=== PATIENT | female | born 1985 | race Caucasian/White ===

== ENCOUNTER 2017-05-17 22:12 | Inpatient (IN) | payer OTHER ==
[~2017-05-17] VITALS: Ht 160 cm; Wt 46.0 kg
[~2017-05-17 22:12] MED LIST: Acetaminophen PO; FAMO-132 PO; FERR325T28 PO; FOLI1TAB16 PO; MYCO250C PO; OXYC-133 PO; PRED-170 PO; RIVA15TA PO; TACR1CAP PO
[2017-05-17] MEDS ORDERED: IV NORMAL SALINE 1000 ML BAG IV ONE (22:30)
[2017-05-17] MEDS ORDERED: ACETAMINOPHEN 325 MG TABLET PO ONE ×2 (22:30→23:15)
--- NOTE | 2017-05-17 22:44 | NUR ---
Code Sepsis called @ 0. senior warehouse clerk at bedside @ 2221.
[2017-05-17 23:10] LABS: BASOPHILS # (AUTO) 0.1 K/uL (0.0-8.0); BASOPHILS % (AUTO) 0.5 % (0.0-2.0); EOSINOPHILS # (AUTO) 0.1 K/uL (0.0-0.7); EOSINOPHILS % (AUTO) 0.9 % (0.0-7.0); LYMPHOCYTES # (AUTO) 1.8 K/uL (20.0-40.0); MEAN CORPUSCULAR HEMOGLOBIN 23.5 uug (24.7-32.8); MEAN CORPUSCULAR HGB CONC 28 g/dL (32.3-35.6); MONOCYTES % (AUTO) 6.9 % (0.0-11.0); NEUTROPHILS # (AUTO) 11.1 K/uL (1.8-8.9); NEUTROPHILS % (AUTO) 78.7 % (38.5-71.5); PLATELET COUNT (AUTO) 620 K/uL (179-408); WHITE BLOOD COUNT (AUTO) 14.2 K/uL (3.8-11.8)
[2017-05-17 23:11] LABS: BILIRUBIN,DIRECT 0.1 mg/dL (0.0-0.2); BILIRUBIN,TOTAL 0.1 mg/dL (0.2-1.0); CREATININE 1.9 mg/dL (0.6-1.3); POTASSIUM 4.5 mmol/L (3.5-5.1); TOTAL PROTEIN, SERUM 5.1 g/dL (6.4-8.2)
[2017-05-17 23:16] LABS: HEMOGLOBIN 4.6 g/dL (10.9-14.3); RED BLOOD CELL COUNT(AUTO) 1.95 MIL/uL (3.63-4.92)
[2017-05-17 23:17] LABS: HEMATOCRIT 16.2 % (31.2-41.9)
[2017-05-17] MEDS ORDERED: PIPERACILLIN SODIUM/TAZOBACTAM 3.375 G in IV DEXTROSE 5% 50 ML IV ONE (23:30)
[2017-05-17] MEDS ORDERED: VANCOMYCIN IV 1,000 MG in IV DEXTROSE 5% 250 ML IV ONE (23:30)
[2017-05-17] MEDS ORDERED: ACETAMINOPHEN ES 500 MG TABLET ONE (23:33)
[2017-05-17] MEDS ORDERED: PIPERACILLIN/TAZOBACTAM/D5W 50 ML IV ONE (23:48)
[2017-05-18] VITALS (16 sets, daily range): BP systolic 91–113; BP diastolic 49–74
[2017-05-18] MEDS ORDERED: ONDANSETRON IV *ER 4 MG/2 ML VIAL IV ONE
[2017-05-18] MEDS ORDERED: MORPHINE SULFATE 4 MG/1 ML DISP.SYRIN IV ONE
[2017-05-18 00:02] LABS: *BILIRUBIN,URIN NEGATIVE (NEGATIVE); *BLOOD, URINE 2+ (NEGATIVE); *COLOR,URINE YELLOW (YELLOW); *KETONES,URINE NEGATIVE (NEGATIVE); *PROTEIN,URINE NEGATIVE (NEGATIVE); *UROBILINOGEN,URINE 0.2 E.U./dl (NORMAL); LEUKOCYTE ESTERASE ,URINE 2+ (NEGATIVE); NITRITE, URINE NEGATIVE (NEGATIVE); PH,URINE 5.5 (5.0-8.0); UGLUCOSE NEGATIVE (NEGATIVE)
[2017-05-18 00:11] LABS: *CLARITY,URINE HAZY (CLEAR)
[2017-05-18 00:12] LABS: BACTERIA,URINE MODERATE /HPF (NONE SEEN); SQUAMOUS EPITHELIAL CELL,UR MODERATE /HPF (NONE SEEN); WBC,URINE 20-50 /HPF (0-3)
[2017-05-18] MEDS ORDERED: ONDANSETRON 4 MG/2 ML VIAL ONE (00:23)
[2017-05-18] MEDS ORDERED: MORPHINE SULFATE 2 MG/1 ML DISP.SYRIN ONE (00:24)
[2017-05-18] MEDS ORDERED: VANCOMYCIN IV 200 ML ONE (00:48)
--- NOTE | 2017-05-18 00:56 | NUR ---
Report given to Lakia SINGLETON
[2017-05-18] MEDS ORDERED: MEROPENEM 0.5 G in IV NORMAL SALINE 50 ML IV SCH (01:00)
[2017-05-18] MEDS ORDERED: HYDROMORPHONE 1 MG/1 ML DISP.SYRIN IV PRN ×2 (01:00→12:00)
[2017-05-18] MEDS ORDERED: ONDANSETRON 4 MG/2 ML VIAL IV PRN (01:00)
--- NOTE | 2017-05-18 01:11 | NUR ---
Pt. admitted to [facility] , under care of Dr. Solano. Belongs List completed
--- NOTE | 2017-05-18 01:15 | NUR ---
RECEIVED PATIENT VIA GURNEY FROM ER. PATIENT IS A/O X4. APPEARS VERY PALE AND WEAK. ASSISTED TO THE BATHROOM. TEMPERATURE TRENDING DOWN. BP WNL. PATIENT PLACED ON TELE ORDERED, ST 115. PATIENT C/O PAIN, GENERALIZED AT THIS TIME. H/L INTACT AND PATENT, NOTED TO LEFT FA #22 GAUGE. CALL LIGHT IN REACH. ALL NEEDS ATTENDED. WILL CONTINUE TO MONITOR.
[2017-05-18 01:26] LABS: IRON, SERUM 5 ug/dL (50-175)
[2017-05-18 01:33] LABS: BAND % (MANUAL) 3 % (0-10); EOSINOPHILS % (MANUAL) 2 % (0-8); LYMPHOCYTES % (MANUAL) 16 % (20-40); MONOCYTES % (MANUAL) 4 % (2-10); NEUTROPHILS % (MANUAL) 75 % (42-75)
[2017-05-18] MEDS ORDERED: MEROPENEM 500 MG VIAL IV ONE (02:02)
--- NOTE | 2017-05-18 02:30 | NUR ---
bp 105/62, patient c/o in severe pain,dilaudid 0.5 mg iv given. temp 99 trending down,started 1 unit of prbc recheck v/s q 15 min x3 and wnl, continue closely monitor.
[2017-05-18] MEDS ORDERED: HYDROMORPHONE 4 MG/1 ML DISP.SYRIN ONE (02:32)
[2017-05-18] MEDS: IV NS 1000 ML 1,000 ML IV PRN (02:35)
--- NOTE | 2017-05-18 05:00 | NUR ---
1 unit of PRBC transfused completed,vital signs been stable, no adverse reaction noted.patient slept in short intervals,continue closely monitor.sr rate 90's with pac's .
[2017-05-18 07:37] LABS: BASOPHILS # (AUTO) 0.1 K/uL (0.0-8.0); EOSINOPHILS # (AUTO) 0.2 K/uL (0.0-0.7); EOSINOPHILS % (AUTO) 1.8 % (0.0-7.0); LYMPHOCYTES # (AUTO) 2.5 K/uL (20.0-40.0); LYMPHOCYTES % (AUTO) 20.7 % (20.5-51.5); MEAN CORPUSCULAR HEMOGLOBIN 25.2 uug (24.7-32.8); MEAN CORPUSCULAR HGB CONC 29 g/dL (32.3-35.6); MEAN CORPUSCULAR VOLUME 86.4 fL (75.5-95.3); MONOCYTES # (AUTO) 1.2 K/uL (2.0-10.0); MONOCYTES % (AUTO) 9.8 % (0.0-11.0); NEUTROPHILS % (AUTO) 66.7 % (38.5-71.5); PLATELET COUNT (AUTO) 486 K/uL (179-408)
[2017-05-18 07:39] LABS: RED BLOOD CELL COUNT(AUTO) 2.06 MIL/uL (3.63-4.92)
[2017-05-18 07:43] LABS: HEMATOCRIT 17.8 % (31.2-41.9); HEMOGLOBIN 5.2 g/dL (10.9-14.3)
[2017-05-18 07:47] LABS: ALANINE AMINOTRANSFERASE < 6 U/L (14-59); ALKALINE PHOSPHATASE 58 U/L (50-136); ASPARTATE AMINOTRANSFERASE 8 U/L (15-37); BILIRUBIN,TOTAL 0.4 mg/dL (0.2-1.0); CARBON DIOXIDE 16 mmol/L (21-32); CHLORIDE 115 mmol/L (98-107); CREATININE 1.7 mg/dL (0.6-1.3); GLUCOSE 78 mg/dL (74-106); MAGNESIUM 1.7 mg/dL (1.8-2.4); POTASSIUM 4.4 mmol/L (3.5-5.1); TOTAL PROTEIN, SERUM 4.5 g/dL (6.4-8.2); UREA NITROGEN, BLOOD 26 mg/dL (7-18)
[2017-05-18] MEDS ORDERED: HYDROMORPHONE 4 MG/1 ML DISP.SYRIN IV PRN (08:00)
--- NOTE | 2017-05-18 08:00 | NUR ---
Awake, alert, oriented x 4 pale. IVF infusing. Requesting more time to rest at this time
[2017-05-18 08:08] LABS: BAND % (MANUAL) 1 % (0-10); EOSINOPHILS % (MANUAL) 3 % (0-8); LYMPHOCYTES % (MANUAL) 22 % (20-40); MONOCYTES % (MANUAL) 4 % (2-10); NEUTROPHILS % (MANUAL) 70 % (42-75)
[2017-05-18] MEDS ORDERED: FAMOTIDINE 20 MG TABLET PO SCH (09:00)
[2017-05-18] MEDS: predniSONE 5 MG TABLET PO SCH (09:30)
[2017-05-18] MEDS: FOLIC ACID 1 MG TABLET PO SCH ×2 (09:31→17:59)
[2017-05-18] MEDS: FAMOTIDINE 20 MG TABLET PO SCH (09:31)
[2017-05-18] MEDS: TACROLIMUS ANHYDROUS 1 MG CAPSULE PO SCH ×2 (09:31→20:52)
[2017-05-18] MEDS: MEROPENEM 0.5 G in IV NORMAL SALINE 50 ML IV SCH ×2 (09:32→20:58)
[2017-05-18] MEDS: MYCOPHENOLATE MOFETIL 250 MG CAPSULE PO SCH ×2 (09:34→20:52)
[2017-05-18] MEDS ORDERED: MEROPENEM 500 MG in IV NORMAL SALINE 50 ML IV SCH (10:00)
--- NOTE | 2017-05-18 10:30 | NUR ---
All critical lab report relayed to Dr. Mcnulty with orders.
[2017-05-18] MEDS ORDERED: DEXTROSE 5% IV ONE (11:00)
[2017-05-18] MEDS ORDERED: TOBRAMYCIN SULFATE IV ONE (11:00)
[2017-05-18] MEDS: ACETAMINOPHEN 325 MG TABLET PO PRN (11:22)
--- NOTE | 2017-05-18 12:30 | NUR ---
PRBC available. Temp 100.6. Tylenol po given with cooling measures. Will recheck temperature before starting PRBC
[2017-05-18] MEDS ORDERED: HYDROMORPHONE 1 MG/1 ML DISP.SYRIN IV ONE (12:45)
[2017-05-18] MEDS ORDERED: HYDROMORPHONE 4 MG/1 ML DISP.SYRIN IV ONE (13:00)
--- NOTE | 2017-05-18 14:46 | NUR ---
Temp 99. PRBC 1 unit started. Repeat temp 98. 5
[2017-05-18] MEDS ORDERED: MAGNESIUM SULFATE/D5W 100 ML IV SCH (15:00)
--- NOTE | 2017-05-18 16:16 | NUR ---
Clinical pharmacy note-Tobramycin per pharmacy Subjective: To start Tobramycin dosing on this patient for blood stream infection(MD note-sepsis possibly due to uti) Objective: BUN 26 Scr 1.7 WBC 12.0 Temp 100.6 Assessment/Plan: Since renal function is decreased, will dose by fall-off random level for now. Tobramycin 100mg IV x1 was given today at 1100 and random is on order for tomorrow at 0600 with am labs. Will follow the level for further dosing.
--- NOTE | 2017-05-18 16:30 | NUR ---
Received repeat lactic acid = 2.7, Dr. Mcnulty informed with orders for NS 1L bolus, will give after transfusion
[2017-05-18] MEDS: HYDROMORPHONE 4 MG/1 ML DISP.SYRIN IV PRN ×2 (16:53→20:50)
[2017-05-18] MEDS ORDERED: IV NS 1000 ML 1,000 ML IV ONE (17:45)
--- NOTE | 2017-05-18 17:45 | NUR ---
PRBC 1 unit finished with transfusion. Went to the bathroom and IV site got clotted, saline removed.
--- NOTE | 2017-05-18 18:39 | NUR ---
Restarted IV line to RFA G 20 after another attempt. NS bolus 1L started. Will endorsed to infused Magnesium and Merrem due
[2017-05-18] MEDS ORDERED: ALBUMIN HUMAN 25% 50 ML IV ONE (20:00)
[2017-05-18] MEDS: LACTOBACILLUS RHAMNOSUS GG 1 EACH CAPSULE PO SCH (20:52)
--- NOTE | 2017-05-18 21:00 | NUR ---
PATIENT AWAKE, ALERT,IN NO ACUTE DISTRESS, SINUS TACHY ON MONITOR,BP 102/65, AFEBRILE, SEEN BY ID. BUENROSTRO.MRSA SENT TO LAB ORDER,IV NS BOLUS DONE, PATIENT C/O SEVERE PAIN AFTER POST VOIDING DILAUDID 1 MG IV ADMIN CLOSELY MONITOR BP.
[2017-05-18 21:37] LABS: BASOPHILS # (AUTO) 0.1 K/uL (0.0-8.0); BASOPHILS % (AUTO) 0.5 % (0.0-2.0); EOSINOPHILS # (AUTO) 0.1 K/uL (0.0-0.7); EOSINOPHILS % (AUTO) 0.8 % (0.0-7.0); LYMPHOCYTES # (AUTO) 1.3 K/uL (20.0-40.0); LYMPHOCYTES % (AUTO) 11.9 % (20.5-51.5); MEAN CORPUSCULAR HEMOGLOBIN 26.5 uug (24.7-32.8); MEAN CORPUSCULAR HGB CONC 31 g/dL (32.3-35.6); MEAN CORPUSCULAR VOLUME 85.5 fL (75.5-95.3); MONOCYTES # (AUTO) 0.7 K/uL (2.0-10.0); MONOCYTES % (AUTO) 6.6 % (0.0-11.0); NEUTROPHILS # (AUTO) 8.8 K/uL (1.8-8.9); NEUTROPHILS % (AUTO) 80.2 % (38.5-71.5); PLATELET COUNT (AUTO) 490 K/uL (179-408)
[2017-05-18 21:47] LABS: RED BLOOD CELL COUNT(AUTO) 2.44 MIL/uL (3.63-4.92)
[2017-05-18 21:49] LABS: HEMATOCRIT 20.9 % (31.2-41.9); HEMOGLOBIN 6.5 g/dL (10.9-14.3)
[2017-05-18 22:08] LABS: BAND % (MANUAL) 2 % (0-10); EOSINOPHILS % (MANUAL) 1 % (0-8); LYMPHOCYTES % (MANUAL) 18 % (20-40); MONOCYTES % (MANUAL) 6 % (2-10); NEUTROPHILS % (MANUAL) 73 % (42-75)
--- NOTE | 2017-05-18 22:30 | NUR ---
HGB 6.5/HCT 21.6 AND LACTIC ACID 2.1,DR. DILL INFORMED,INCREASE IV RATE TO 100ML/HR OVER NIGHT,AND IF HGB IS LESS THAN 7 IN AM,TO TRANSFUSE 1 MORE UNIT OF PRBC.PATIENT AGREE WITH PLAN OF CARE.
[2017-05-19] VITALS (10 sets, daily range): BP systolic 107–118; BP diastolic 65–83
[2017-05-19] MEDS ORDERED: MAGNESIUM SULFATE/D5W 100 ML ONE (00:05)
[2017-05-19] MEDS ORDERED: HYDROCODONE/APAP 5-325MG TABLET PO PRN (00:15)
[2017-05-19] MEDS: MEROPENEM 0.5 G in IV NORMAL SALINE 50 ML IV SCH ×3 (02:39→17:43)
[2017-05-19] MEDS: HYDROMORPHONE 4 MG/1 ML DISP.SYRIN IV PRN ×5 (03:09→18:57)
[2017-05-19] MEDS ORDERED: HYDROMORPHONE 1 MG/1 ML DISP.SYRIN IV ONE (04:45)
--- NOTE | 2017-05-19 04:48 | NUR ---
PATIENT AMBULATED TO BATH ROOM,VOIDED,CRYING C/O SEVERE ,BURNING PAIN 03/20 , WAS NOTIFIED,DILAUDID 1 MG IV GIVEN X 1 TIMES.
[2017-05-19] MEDS ORDERED: HYDROMORPHONE 4 MG/1 ML DISP.SYRIN ONE (04:53)
--- NOTE | 2017-05-19 06:31 | NUR ---
PATIENT ASLEEP , REQUESTED LAB TO COME BACK LATER, C/O FEELS TIRED WANTS TO SLEEP A LITTLE BIT MORE.
--- NOTE | 2017-05-19 09:00 | NUR ---
PT REFUSING FOR NUCLEAR SCIENTIST TO TAKE BLOOD FOR LAB, PER PT "MAYBE LATER, NOT RIGHT NOW". WILL TRY AGAIN LATER
[2017-05-19] MEDS: predniSONE 5 MG TABLET PO SCH (09:06)
[2017-05-19] MEDS: LACTOBACILLUS RHAMNOSUS GG 1 EACH CAPSULE PO SCH ×2 (09:21→20:54)
[2017-05-19] MEDS: FAMOTIDINE 20 MG TABLET PO SCH (09:22)
[2017-05-19] MEDS: FOLIC ACID 1 MG TABLET PO SCH ×2 (09:22→17:43)
[2017-05-19] MEDS: TACROLIMUS ANHYDROUS 1 MG CAPSULE PO SCH ×2 (09:22→21:00)
[2017-05-19] MEDS: FERROUS SULFATE 325 MG TABEC PO SCH (09:22)
[2017-05-19] MEDS: MYCOPHENOLATE MOFETIL 250 MG CAPSULE PO SCH ×2 (09:22→20:55)
--- NOTE | 2017-05-19 12:00 | NUR ---
PT STILL REFUSING THE CONSTRUCTION SPECIALIST TO TAKE LAB, PER PT "LATER". ADVISED THER CONSTRUCTION SPECIALIST
--- NOTE | 2017-05-19 16:00 | NUR ---
DR IDLL IA AWARE ABOUT HGB RESULTS FOR 05/19/2017.
[2017-05-19 16:08] LABS: BASOPHILS % (AUTO) 0.3 % (0.0-2.0); EOSINOPHILS # (AUTO) 0.1 K/uL (0.0-0.7); EOSINOPHILS % (AUTO) 0.5 % (0.0-7.0); LYMPHOCYTES # (AUTO) 0.8 K/UL (0.8-4.8); LYMPHOCYTES % (AUTO) 5.6 % (20.5-51.5); MEAN CORPUSCULAR HEMOGLOBIN 25.2 UUG (27.0-31.0); MEAN CORPUSCULAR HGB CONC 30 g/dL (32.0-37.0); MEAN CORPUSCULAR VOLUME 83.6 FL (81.0-99.0); MONOCYTES # (AUTO) 0.3 K/UL (0.1-1.30); MONOCYTES % (AUTO) 2.3 % (0.0-11.0); NEUTROPHILS # (AUTO) 13.1 K/UL (1.8-8.9); NEUTROPHILS % (AUTO) 91.3 % (38.5-71.5); PLATELET COUNT (AUTO) 749 K/UL (150-450); WHITE BLOOD COUNT (AUTO) 14.3 K/UL (4.0-11.2)
[2017-05-19 16:14] LABS: HEMATOCRIT 22.6 % (37-47); HEMOGLOBIN 6.8 G/DL (12.0-16.0)
[2017-05-19] MEDS ORDERED: HYDROMORPHONE HCL 2 MG TABLET PO PRN ×2 (16:30)
[2017-05-19 16:44] LABS: MONOCYTES % (MANUAL) 2 % (2-10); NEUTROPHILS % (MANUAL) 88 % (42-75)
[2017-05-19 16:45] LABS: BAND % (MANUAL) 1 % (0-10); LYMPHOCYTES % (MANUAL) 9 % (20-40)
[2017-05-19 16:47] LABS: CREATININE 1.4 mg/dL (0.6-1.3); MAGNESIUM 1.7 mg/dL (1.8-2.4)
--- NOTE | 2017-05-19 17:45 | NUR ---
PER DR DILL INFUSE 1 PRBC, OK PER PT.
--- NOTE | 2017-05-19 17:46 | NUR ---
PT IS REFUSING TO TAKE EPOGEN AT THIS TIME NOR AT 1900. PT WANTS TO RECEIVE THE MEDICATION "AROUND 2300 OR SO". EDUCATION PROVIDED, LET THE PHARMACIST KNOW THAT THE PT WANTS TO POSTPONE ON THE MEDICATION. WILL ADVISE THE NOC SHIFT.
[2017-05-19] MEDS ORDERED: MAGNESIUM OXIDE 400 MG TABLET PO ONE (18:00)
--- NOTE | 2017-05-19 18:28 | NUR ---
THROUGHOUT THE SHIFT KEPT ON REMINDING THE PT TO URINATE FOR URINE SAMPLE, PER PT "I HAVE FORGOTTEN". pUT A HAT ON TOILET, THE PT REMOVED. PUT THE HAT ON TOILET AGAIN AND REMINDED THE PT TO LET THE NURSE KNOWONCE THE PT FEELS LIKE URINATING OR HAVING BM. "OK" PER THE PT.
--- NOTE | 2017-05-19 19:00 | NUR ---
PT IS LAYING IN BED COMFORTABLY. NO S/S OF RESPIRATORY DISTRESS NOTED. PAIN IS MEDICATED. PT STILL REFUSES EPOGEN. ALL SAFETY NEEDS ARE MET. NO S/S OF BLEEDING NOTED. PT WAS REMINDED TO LEAVE URINE AND STOOL SAMPLE
--- NOTE | 2017-05-19 22:00 | NUR ---
STARTED 1 UNIT OF PRBC,PATIENT TOLERATED WELL,MONITOR VITAL SIGNS CLOSELY , NO S/S OF ADVERSE REACTION NOTED,CONTINUE PAIN MANAGEMENT WITH DILAUDID IV ORDER.
[2017-05-19] MEDS: ACETAMINOPHEN 325 MG TABLET PO PRN (22:23)
[2017-05-20] VITALS: BP 118/82
[2017-05-20] MEDS: HYDROMORPHONE 4 MG/1 ML DISP.SYRIN IV PRN (00:24)
[2017-05-20 01:00] VITALS: BP 118/82
--- NOTE | 2017-05-20 01:00 | NUR ---
1UNIT OF PRBC TRANSFUSED COMPLETED, NO REACTION,PATIENT WANTS PROCRIT TO BE GIVEN IN THE MORNING,ALL NEEDS ATTENDED.
[2017-05-20] MEDS: MEROPENEM 0.5 G in IV NORMAL SALINE 50 ML IV SCH ×3 (01:45→17:24)
[2017-05-20] MEDS: IV NS 1000 ML 1,000 ML IV PRN ×2 (01:45→13:42)
[2017-05-20 04:00] VITALS: BP 114/80
[2017-05-20] MEDS: EPOETIN ALFA 20,000 UNIT/ML ML SQ SCH (06:53)
--- NOTE | 2017-05-20 08:00 | NUR ---
ALERT AND COOPERATIVE NO SIGNS OF SOB OR DISTRESS SR/ST ON MONITOR
[2017-05-20] MEDS: predniSONE 5 MG TABLET PO SCH (09:26)
[2017-05-20] MEDS: LACTOBACILLUS RHAMNOSUS GG 1 EACH CAPSULE PO SCH ×2 (09:26→21:09)
[2017-05-20] MEDS: MYCOPHENOLATE MOFETIL 250 MG CAPSULE PO SCH ×2 (09:26→21:09)
[2017-05-20] MEDS: FERROUS SULFATE 325 MG TABEC PO SCH (09:27)
[2017-05-20] MEDS: FAMOTIDINE 20 MG TABLET PO SCH ×2 (09:27→16:32)
[2017-05-20] MEDS: FOLIC ACID 1 MG TABLET PO SCH ×2 (09:27→16:32)
[2017-05-20] MEDS: TACROLIMUS ANHYDROUS 1 MG CAPSULE PO SCH ×2 (09:58→21:00)
[2017-05-20 10:22] LABS: BASOPHILS # (AUTO) 0.1 K/uL (0.0-8.0); BASOPHILS % (AUTO) 0.7 % (0.0-2.0); EOSINOPHILS # (AUTO) 0.2 K/uL (0.0-0.7); EOSINOPHILS % (AUTO) 1.7 % (0.0-7.0); LYMPHOCYTES # (AUTO) 2.3 K/uL (20.0-40.0); LYMPHOCYTES % (AUTO) 16.5 % (20.5-51.5); MEAN CORPUSCULAR HEMOGLOBIN 26.4 uug (24.7-32.8); MEAN CORPUSCULAR HGB CONC 31 g/dL (32.3-35.6); MEAN CORPUSCULAR VOLUME 85.5 fL (75.5-95.3); MONOCYTES # (AUTO) 0.9 K/uL (2.0-10.0); MONOCYTES % (AUTO) 6.3 % (0.0-11.0); NEUTROPHILS # (AUTO) 10.3 K/uL (1.8-8.9); NEUTROPHILS % (AUTO) 74.8 % (38.5-71.5); PLATELET COUNT (AUTO) 552 K/uL (179-408); RED BLOOD CELL COUNT(AUTO) 2.94 MIL/uL (3.63-4.92); WHITE BLOOD COUNT (AUTO) 13.8 K/uL (3.8-11.8)
[2017-05-20 10:27] LABS: HEMATOCRIT 25.1 % (31.2-41.9); HEMOGLOBIN 7.8 g/dL (10.9-14.3)
[2017-05-20 10:37] LABS: BILIRUBIN,DIRECT 0.1 mg/dL (0.0-0.2); BILIRUBIN,TOTAL 0.2 mg/dL (0.2-1.0); CREATININE 1.2 mg/dL (0.6-1.3); MAGNESIUM 1.7 mg/dL (1.8-2.4); POTASSIUM 4.5 mmol/L (3.5-5.1); TOTAL PROTEIN, SERUM 4.8 g/dL (6.4-8.2)
[2017-05-20] MEDS ORDERED: HYDROMORPHONE 4 MG/1 ML DISP.SYRIN IV ONE (11:15)
[2017-05-20 11:30] VITALS: BP 115/78
--- NOTE | 2017-05-20 13:00 | NUR ---
SEEN BY DR DILL NOTED LABS WITH ORDER FOR MG 2 GM IV
[2017-05-20 13:20] VITALS: BP 115/82
[2017-05-20] MEDS: MAGNESIUM SULFATE/D5W 100 ML IV SCH ×2 (13:34→14:41)
--- NOTE | 2017-05-20 15:46 | NUR ---
CONTINUE WITH PAIN MANAGEMENT
[2017-05-20] MEDS: MORPHINE SULFATE 4 MG/1 ML DISP.SYRIN IV PRN ×2 (17:23→21:39)
[2017-05-20 19:00] VITALS: BP 118/84
[2017-05-21] VITALS: BP 122/83
--- NOTE | 2017-05-21 00:05 | NUR ---
temp 99.6,Tylenol 650 mg po given,patient still having a lot of pain and frequently urination,continue pain management with morphine 6 mg iv q 4h as needed.
[2017-05-21] MEDS: ACETAMINOPHEN 325 MG TABLET PO PRN (00:12)
[2017-05-21] MEDS: MORPHINE SULFATE 4 MG/1 ML DISP.SYRIN IV PRN ×5 (01:56→21:33)
[2017-05-21] MEDS: MEROPENEM 0.5 G in IV NORMAL SALINE 50 ML IV SCH ×3 (01:58→18:03)
[2017-05-21 04:00] VITALS: BP 117/85
[2017-05-21] MEDS ORDERED: MORPHINE SULFATE 10 MG/1 ML DISP.SYRIN IV ONE (05:00)
--- NOTE | 2017-05-21 05:30 | NUR ---
patient stated still having a lot of pain, was notified Morphine 8 mg iv given x1 times.urine culture sent to lab,patient has a poor night.
[2017-05-21] MEDS ORDERED: MORPHINE SULFATE 10 MG/1 ML DISP.SYRIN ONE (05:32)
[2017-05-21 07:10] LABS: *BILIRUBIN,URIN NEGATIVE (NEGATIVE); *BLOOD, URINE 2+ (NEGATIVE); *CLARITY,URINE CLEAR (CLEAR); *COLOR,URINE YELLOW (YELLOW); *KETONES,URINE NEGATIVE (NEGATIVE); *PROTEIN,URINE NEGATIVE (NEGATIVE); *UROBILINOGEN,URINE 0.2 E.U./dl (NORMAL); LEUKOCYTE ESTERASE ,URINE 1+ (NEGATIVE); NITRITE, URINE NEGATIVE (NEGATIVE); UGLUCOSE NEGATIVE (NEGATIVE)
[2017-05-21] MEDS: IV NS 1000 ML 1,000 ML IV PRN ×2 (07:17→21:11)
[2017-05-21 07:29] LABS: BACTERIA,URINE FEW /HPF (NONE SEEN); SQUAMOUS EPITHELIAL CELL,UR MODERATE /HPF (NONE SEEN)
[2017-05-21 09:24] LABS: CREATININE 1.2 mg/dL (0.6-1.3); MAGNESIUM 1.9 mg/dL (1.8-2.4); POTASSIUM 4.6 mmol/L (3.5-5.1)
[2017-05-21] MEDS: FAMOTIDINE 20 MG TABLET PO SCH ×2 (09:38→17:51)
[2017-05-21] MEDS: LACTOBACILLUS RHAMNOSUS GG 1 EACH CAPSULE PO SCH ×2 (09:38→20:02)
[2017-05-21] MEDS: FERROUS SULFATE 325 MG TABEC PO SCH (09:38)
[2017-05-21] MEDS: FOLIC ACID 1 MG TABLET PO SCH ×2 (09:38→17:51)
[2017-05-21] MEDS: MYCOPHENOLATE MOFETIL 250 MG CAPSULE PO SCH ×2 (09:38→20:12)
[2017-05-21] MEDS: predniSONE 5 MG TABLET PO SCH (09:38)
[2017-05-21 10:50] LABS: BASOPHILS # (AUTO) 0.1 K/uL (0.0-8.0); BASOPHILS % (AUTO) 0.9 % (0.0-2.0); EOSINOPHILS # (AUTO) 0.3 K/uL (0.0-0.7); EOSINOPHILS % (AUTO) 1.8 % (0.0-7.0); HEMATOCRIT 24.4 % (31.2-41.9); HEMOGLOBIN 7.7 g/dL (10.9-14.3); LYMPHOCYTES # (AUTO) 2.1 K/uL (20.0-40.0); LYMPHOCYTES % (AUTO) 13.2 % (20.5-51.5); MEAN CORPUSCULAR HGB CONC 32 g/dL (32.3-35.6); MEAN CORPUSCULAR VOLUME 85.5 fL (75.5-95.3); MONOCYTES # (AUTO) 0.9 K/uL (2.0-10.0); MONOCYTES % (AUTO) 5.9 % (0.0-11.0); NEUTROPHILS # (AUTO) 12.4 K/uL (1.8-8.9); NEUTROPHILS % (AUTO) 78.2 % (38.5-71.5); PLATELET COUNT (AUTO) 547 K/uL (179-408); RED BLOOD CELL COUNT(AUTO) 2.86 MIL/uL (3.63-4.92); WHITE BLOOD COUNT (AUTO) 15.8 K/uL (3.8-11.8)
[2017-05-21 11:42] VITALS: BP 117/78
[2017-05-21 15:34] VITALS: BP 120/78
[2017-05-21 20:09] VITALS: BP 128/86
[2017-05-21] MEDS: TACROLIMUS ANHYDROUS 0.5 MG CAPSULE PO SCH (21:30)
--- NOTE | 2017-05-21 22:22 | NUR ---
Received patient sound asleep at this time. No s/s of respiratory distress noted. Will monitor.
--- NOTE | 2017-05-21 22:40 | NUR ---
Received patient in bed awake alert & oriented, no SOB denies chest pain. Still c/o gen. pain, medicated for pain PRN. Routine night meds administered p.o, patient tolerated. Night snacks provided. kept comfortable. Will continue to monitor.
[2017-05-22] MEDS: MORPHINE SULFATE 4 MG/1 ML DISP.SYRIN IV PRN ×6 (01:40→22:31)
[2017-05-22] MEDS: MEROPENEM 0.5 G in IV NORMAL SALINE 50 ML IV SCH ×3 (01:41→18:27)
--- NOTE | 2017-05-22 01:49 | NUR ---
Medicated for pain as needed. Will monitor.
--- NOTE | 2017-05-22 05:09 | NUR ---
Slept good. Medicated for pain twice with relief. Continue on ATB without s/s of adverse reaction noted. All needs attended and met. No significant event reported all night. Continue current plan of care.
[2017-05-22 05:28] VITALS: BP 113/80
[2017-05-22] MEDS: ACETAMINOPHEN 325 MG TABLET PO PRN ×2 (05:55→21:31)
[2017-05-22] MEDS ORDERED: MORPHINE SULFATE 10 MG/1 ML DISP.SYRIN ONE (06:03)
--- NOTE | 2017-05-22 08:00 | NUR ---
Sleeping, comfortable. IVF infusing
[2017-05-22] MEDS: IV NS 1000 ML 1,000 ML IV PRN ×2 (08:56→23:04)
[2017-05-22] MEDS: TOBRAMYCIN SULFATE IV SCH ×2 (08:57→22:24)
[2017-05-22] MEDS: DEXTROSE 5% IV SCH ×2 (08:57→22:24)
[2017-05-22] MEDS: FERROUS SULFATE 325 MG TABEC PO SCH (09:04)
[2017-05-22] MEDS: FOLIC ACID 1 MG TABLET PO SCH ×2 (09:04→18:27)
[2017-05-22] MEDS: predniSONE 5 MG TABLET PO SCH (09:04)
[2017-05-22] MEDS: LACTOBACILLUS RHAMNOSUS GG 1 EACH CAPSULE PO SCH ×2 (09:04→21:22)
[2017-05-22] MEDS: FAMOTIDINE 20 MG TABLET PO SCH ×2 (09:04→18:27)
--- NOTE | 2017-05-22 10:00 | NUR ---
Awake, medication given
[2017-05-22] MEDS: MYCOPHENOLATE MOFETIL 250 MG CAPSULE PO SCH ×2 (10:04→21:22)
[2017-05-22] MEDS: TACROLIMUS ANHYDROUS 0.5 MG CAPSULE PO SCH (10:04)
[2017-05-22 11:44] VITALS: BP 111/78
--- NOTE | 2017-05-22 12:48 | NUR ---
Clinical pharmacy note-Tobramycin per pharmacy Subjective: To start Tobramycin dosing on this patient for sepsis possibly due to uti Objective: HT 63'' WT 101 LB BUN 17 Scr 1.2 WBC 15.8 Temp 100 Assessment/Plan: Will start tobramycin 60 mg IVPB q13h for predicted peal of 5.9 & tr of 0.81 at steady state. 1st dose is due today at 0900. Plan to check peak & trough around 3rd dose (not yet ordered). Will follow the level for further dosing.
[2017-05-22 16:10] VITALS: BP 115/73
--- NOTE | 2017-05-22 18:30 | NUR ---
Complaining of pain PRN medication given. IVF infusing
--- NOTE | 2017-05-22 20:15 | NUR ---
RECEIVED SHIFT REPORT FROM PREVIOUS SHIFT NURSE. PATIENT IS A/OX4, RESTING COMFORTABLY IN BED WITH FRIEND AT BEDSIDE. PAIN MANAGEMENT WILL BE PROVIDED. BED IN LOCKED/LOW POSITION, SIDE RAILS UP X2, CALL LIGHT WITHIN REACH. SAFETY AND COMFORT WILL BE PROVIDED THROUGHOUT SHIFT.
--- NOTE | 2017-05-22 20:15 | NUR ---
IN STABLE CONDITION, NO S/S OF DISTRESS, VSS.
[2017-05-22 20:26] VITALS: BP 129/87
[2017-05-22] MEDS: TACROLIMUS ANHYDROUS 1 MG CAPSULE PO SCH (21:21)
--- NOTE | 2017-05-22 21:30 | NUR ---
PATIENT'S TEMPERATURE 100. COOLING MEASURES PROVIDED, TYLENOL WILL BE ADMINISTERED.
[2017-05-22 22:30] VITALS: BP 129/88
--- NOTE | 2017-05-22 22:30 | NUR ---
PATIENT'S BP 129/88. TEMPERATURE 99.7.
[2017-05-23] MEDS: MEROPENEM 0.5 G in IV NORMAL SALINE 50 ML IV SCH ×2 (02:11→10:25)
[2017-05-23 02:50] VITALS: BP 128/88
[2017-05-23] MEDS: MORPHINE SULFATE 4 MG/1 ML DISP.SYRIN IV PRN ×5 (02:54→21:25)
[2017-05-23 05:05] VITALS: BP 120/83
--- NOTE | 2017-05-23 06:17 | NUR ---
PATIENT SLEPT INTERMITTENTLY THROUGH THE NIGHT. PATIENT HAD COMPLAINTS OF PAIN, PAIN MANAGEMENT PROVIDED. BP WNL IN THE 120S/80S. TEMPERATURE ELEVATED IN BEGINNING OF SHIFT BUT NOW IS WNL WITH TYLENOL ADMINSITERED AND COOLING MEASURES INITIATED. IN STABLE CONDITION, NO S/S OF DISTRESS. ANTIBIOTICS ADMINISTERED. BED IN LOCKED/LOW POSITION WITH SIDE RAILS UPX2, CALL LIGHT WITHIN REACH. SAFETY AND COMFORT WAS PROVIDED THROUGHOUT SHIFT.
[2017-05-23] MEDS: FERROUS SULFATE 325 MG TABEC PO SCH (08:30)
[2017-05-23] MEDS: FAMOTIDINE 20 MG TABLET PO SCH ×2 (08:30→16:19)
[2017-05-23] MEDS: predniSONE 5 MG TABLET PO SCH (08:30)
[2017-05-23] MEDS: LACTOBACILLUS RHAMNOSUS GG 1 EACH CAPSULE PO SCH ×2 (08:30→21:24)
[2017-05-23] MEDS: TACROLIMUS ANHYDROUS 1 MG CAPSULE PO SCH ×2 (08:31→21:25)
[2017-05-23] MEDS: FOLIC ACID 1 MG TABLET PO SCH ×2 (08:31→16:18)
[2017-05-23] MEDS: MYCOPHENOLATE MOFETIL 250 MG CAPSULE PO SCH ×2 (08:37→21:24)
[2017-05-23 09:31] LABS: BASOPHILS # (AUTO) 0.2 K/uL (0.0-8.0); EOSINOPHILS # (AUTO) 0.4 K/uL (0.0-0.7); EOSINOPHILS % (AUTO) 2.5 % (0.0-7.0); HEMATOCRIT 23.8 % (31.2-41.9); LYMPHOCYTES # (AUTO) 2.4 K/uL (20.0-40.0); LYMPHOCYTES % (AUTO) 14.8 % (20.5-51.5); MEAN CORPUSCULAR HEMOGLOBIN 26.5 uug (24.7-32.8); MEAN CORPUSCULAR HGB CONC 31 g/dL (32.3-35.6); MEAN CORPUSCULAR VOLUME 86.8 fL (75.5-95.3); MONOCYTES % (AUTO) 6.3 % (0.0-11.0); NEUTROPHILS % (AUTO) 75.4 % (38.5-71.5); PLATELET COUNT (AUTO) 515 K/uL (179-408); RED BLOOD CELL COUNT(AUTO) 2.74 MIL/uL (3.63-4.92); WHITE BLOOD COUNT (AUTO) 15.9 K/uL (3.8-11.8)
[2017-05-23] MEDS: IV NS 1000 ML 1,000 ML IV PRN (09:35)
[2017-05-23 09:37] LABS: HEMOGLOBIN 7.3 g/dL (10.9-14.3)
[2017-05-23 09:53] LABS: MAGNESIUM 1.4 mg/dL (1.8-2.4); PHOSPHOROUS 3.5 mg/dL (2.5-4.9); POTASSIUM 4.6 mmol/L (3.5-5.1)
--- NOTE | 2017-05-23 10:57 | NUR ---
Critical value Hgb 7.3, Dr. Tammy Morris notified. Patient is asymptomatic, alert and oriented, no SOB. Will continue monitoring.
[2017-05-23 11:09] VITALS: BP 117/78
[2017-05-23] MEDS: DEXTROSE 5% IV SCH (11:38)
[2017-05-23] MEDS: TOBRAMYCIN SULFATE IV SCH (11:38)
--- NOTE | 2017-05-23 15:11 | NUR ---
Clinical pharmacy note-Tobramycin per pharmacy Subjective: To continue Tobramycin dosing on this patient for sepsis possibly due to uti Objective: HT 63'' WT 101 LB BUN 15 Scr 1.0 WBC 15.9 Temp 98.9 trough: pending peak: pending Assessment/Plan: Will continue tobramycin 60 mg IVPB q13h for predicted peal of 5.9 & tr of 0.81 at steady state. Trough ordered beofre 4th scheduled dose due tonight at 2330, and peak due tomorrow early am at 0130 after 4th dose infusion. Will follow the level for further dosing tomorrow am. Will reschedule as needed. Will follow
[2017-05-23] MEDS: MAGNESIUM SULFATE/D5W 100 ML IV SCH ×4 (15:30→17:11)
[2017-05-23 15:31] VITALS: BP 121/79
--- NOTE | 2017-05-23 15:56 | NUR ---
Patient in bed resting watching tv on her computer. No s/s of distress noted. CO of left back pain. Medicated as ordered. Requested to talk to Dr. Brittany MD aware. Cooperative with in Interventions and medications. IV intact, fluids are running. Safety and comfort provided. Will continue monitoring.
--- NOTE | 2017-05-23 18:31 | NUR ---
Patient in bed resting, no s/s of distress. C/O of pain, medicated ordered. Poor appetite. All medications were administered as order. All needs me by the staff.
[2017-05-23 19:00] VITALS: BP 119/82
--- NOTE | 2017-05-23 19:30 | NUR ---
AWAKE IN BED WHEN RECEIVED. PRESENTED A TOLERABLE PAIN AT THIS TIME. CONTINUES IVF INFUSING VIA PUMP. WILL CONTINUE CARE PLANNED.
--- NOTE | 2017-05-23 19:37 | NUR ---
RECEIVED REPORT FROM MANI ARAIZA
[2017-05-23] MEDS: CEFEPIME HCL 1 G in IV DEXTROSE 5% 50 ML IV SCH (21:26)
--- NOTE | 2017-05-23 23:54 | NUR ---
PATIENT REFUSED LAB DRAW AT THIS TIME PER EAR FLAP BINDER.
[2017-05-24] MEDS: MORPHINE SULFATE 4 MG/1 ML DISP.SYRIN IV PRN ×4 (01:24→18:32)
[2017-05-24] MEDS ORDERED: MORPHINE SULFATE 10 MG/1 ML DISP.SYRIN ONE (01:36)
[2017-05-24] MEDS: IV NS 1000 ML 1,000 ML IV PRN ×2 (03:12→14:08)
[2017-05-24 04:00] VITALS: BP 122/79
--- NOTE | 2017-05-24 06:11 | NUR ---
SLEPT IN BETWEEN CARE. MEDICATED FOR PAIN 3X WITH RELIEF. ALL NEEDS ATTENDED AND MET. NO S/S OF ADVERSE REACTION NOTED FROM IV ATB. IVF CONTINUES ORDERED. IV SITE INTACK. NO S/S OF INFILTRATION NOTED. NO SIGNIFICANT EVENT REPORTED ALL NIGHT. CONTINUE CURRENT PLAN OF CARE.
--- NOTE | 2017-05-24 07:30 | NUR ---
Sleeping, comfortable. IVF infusing.
[2017-05-24] MEDS: predniSONE 5 MG TABLET PO SCH (09:39)
[2017-05-24] MEDS: MYCOPHENOLATE MOFETIL 250 MG CAPSULE PO SCH ×2 (09:39→20:12)
[2017-05-24] MEDS: CEFEPIME HCL 1 G in IV DEXTROSE 5% 50 ML IV SCH ×2 (09:39→20:02)
[2017-05-24] MEDS: FERROUS SULFATE 325 MG TABEC PO SCH (09:39)
[2017-05-24] MEDS: FOLIC ACID 1 MG TABLET PO SCH ×2 (09:39→18:24)
[2017-05-24] MEDS: LACTOBACILLUS RHAMNOSUS GG 1 EACH CAPSULE PO SCH ×2 (09:39→20:12)
[2017-05-24] MEDS: TACROLIMUS ANHYDROUS 1 MG CAPSULE PO SCH ×2 (09:40→20:14)
[2017-05-24] MEDS: FAMOTIDINE 20 MG TABLET PO SCH ×2 (09:40→18:24)
[2017-05-24] MEDS ORDERED: CEFE1PIG3 IV (09:54)
[2017-05-24] MEDS ORDERED: EPOE200012 SQ (09:54)
[2017-05-24] MEDS ORDERED: LACT1CAP57 PO (09:54)
[2017-05-24] MEDS ORDERED: FERR325T28 PO (09:54)
[2017-05-24] MEDS ORDERED: OXYC-128 PO (09:54)
[2017-05-24] MEDS ORDERED: MAGNESIUM SULFATE/D5W 100 ML IV SCH (10:00)
[2017-05-24 11:07] VITALS: BP 120/86
[2017-05-24 13:19] LABS: MAGNESIUM 1.8 mg/dL (1.8-2.4); POTASSIUM 4.6 mmol/L (3.5-5.1)
[2017-05-24 16:10] VITALS: BP 119/82
[2017-05-24 17:07] LABS: BASOPHILS # (AUTO) 0.2 K/uL (0.0-8.0); BASOPHILS % (AUTO) 1.3 % (0.0-2.0); EOSINOPHILS # (AUTO) 0.4 K/uL (0.0-0.7); EOSINOPHILS % (AUTO) 2.6 % (0.0-7.0); HEMATOCRIT 23.8 % (31.2-41.9); LYMPHOCYTES # (AUTO) 1.8 K/uL (20.0-40.0); LYMPHOCYTES % (AUTO) 11.4 % (20.5-51.5); MEAN CORPUSCULAR HEMOGLOBIN 26.8 uug (24.7-32.8); MEAN CORPUSCULAR HGB CONC 30 g/dL (32.3-35.6); MEAN CORPUSCULAR VOLUME 87.9 fL (75.5-95.3); MONOCYTES # (AUTO) 1.1 K/uL (2.0-10.0); MONOCYTES % (AUTO) 6.7 % (0.0-11.0); NEUTROPHILS # (AUTO) 12.4 K/uL (1.8-8.9); PLATELET COUNT (AUTO) 530 K/uL (179-408); RED BLOOD CELL COUNT(AUTO) 2.71 MIL/uL (3.63-4.92)
[2017-05-24 17:31] LABS: HEMOGLOBIN 7.2 g/dL (10.9-14.3)
[2017-05-24] MEDS: EPOETIN ALFA 20,000 UNIT/ML ML SQ SCH (18:33)
--- NOTE | 2017-05-24 19:10 | NUR ---
REPORT RECEIVED FROM MASOOD. PATIENT APPEARS SLEEPING DURING INITIAL ROUNDS. NO S/S OF PAIN/DISCOMFORTS NOTED. IVF INFUSING WELL ON RFA, NO REDNESS/SWELLING ON AFFECTED AREA. SAFETY MESAURES AND FALL PRECAUTION MAINTAINED. CONTINUE CARE PLANNED.
[2017-05-24 20:00] VITALS: BP 137/90
--- NOTE | 2017-05-24 20:35 | NUR ---
PATIENT WORRIED THAT SHE HAS FEVER STILL 100.7 AND AFRAID TO GO HOME AND COME BACK THE NEXT DAY FOR SPIKED TEMPERATURE. EXPALINED TO PATIENT THAT SHE HAS MULTIPLE COVERS THAT MADE HER BODY TEMPERATURE GO UP BUT ASSURED PATIENT TO RE CHECK THE TEMP AGAIN IN AN HOUR. INFORMED PATIENT THAT SHELL BE HAVING HOME HEALTH SERVICES AT HOME TO CONTINUE THE ATB THERAPY. CHARGE NURSE AWARE.
--- NOTE | 2017-05-24 21:44 | NUR ---
LEFT MESSAGE FOR [facility] REGARDING PATIENT REQUEST TO BE DISCHARGED IN AM DUE TO CURRENT SITUATION.
--- NOTE | 2017-05-24 22:43 | NUR ---
DISCHARGE INSTRUCTION GIVEN TO PATIENT AND VERBALIZED UNDERSTANDING. BELONGINGS CHECKED AND VERIFIED AND DISCHARGED WITH THE BELONGINGS. COMPLAINT OF TOLERABLE PAIN AT THIS TIME. DISCHARGED TO HOME ACCOMPANIED BY . NOT IN DISTRESS. VS STABLE. KEPT HL PER MD INSTRUCTION FOR HOME HEALTH SERVICES ANTIBIOTIC THERAPY CONTINUANCE.
== END 2017-05-24 22:45 | disposition home health service (06) | DRG 720 ==
LOC: ER 22:12 → TELE-TD 05-18 00:30 → TELE 05-19 14:00 → MED 05-21 16:30
PROVIDERS: ADMIT Internal Medicine; ATTEND Internal Medicine
PROC: 30233N1 Transfusion of Nonautologous Red Blood Cells into Peripheral Vein, Percutaneous Approach (ICD-10-PCS; principal; 2017-05-18)
DX: A41.9 Sepsis, unspecified organism (principal); N17.0 Acute kidney failure with tubular necrosis; E87.2 Acidosis; E43 Unspecified severe protein-calorie malnutrition; T86.12 Kidney transplant failure; F11.20 Opioid dependence, uncomplicated; K92.2 Gastrointestinal hemorrhage, unspecified; N39.0 Urinary tract infection, site not specified; N18.9 Chronic kidney disease, unspecified; D63.1 Anemia in chronic kidney disease; Z79.899 Other long term (current) drug therapy; Z68.1 Body mass index [BMI] 19.9 or less, adult; E88.09 Other disorders of plasma-protein metabolism, not elsewhere classified; E83.42 Hypomagnesemia; Z82.49 Family history of ischemic heart disease and other diseases of the circulatory system; Z87.440 Personal history of urinary (tract) infections; N92.0 Excessive and frequent menstruation with regular cycle; K21.9 Gastro-esophageal reflux disease without esophagitis; E78.5 Hyperlipidemia, unspecified; D47.3 Essential (hemorrhagic) thrombocythemia; Z88.1 Allergy status to other antibiotic agents; Z83.3 Family history of diabetes mellitus; Z84.1 Family history of disorders of kidney and ureter; R19.7 Diarrhea, unspecified; G89.29 Other chronic pain
CPT/HCPCS: 36415; 70030-TC; 71010; 80200; 83550; 83605; 83735; 84100; 85025; 85730; 86850; 86900; 86901; 86920; 87040; 87077; 87086; 93005; A4663; J0692; J0885; J1170; J2185; J2270; J2405; J2543; J3260; J3370; J3475; J3490; J7030; J7050; J7060; J7507; J7512; J7517; P9016-BL; P9021; P9047

== ENCOUNTER 2017-05-25 22:52 | Inpatient (IN) | payer OTHER ==
[~2017-05-25] VITALS: Ht 160 cm; Wt 50.0 kg
[~2017-05-25 22:52] MED LIST changes: +CEFE1PIG3 IV; +EPOE200012 SQ; +LACT1CAP57 PO; +OXYC-128 PO; -RIVA15TA PO
--- NOTE | 2017-05-25 23:05 | NUR ---
DR. JUAREZ AT BEDSIDE FOR MSE.
[2017-05-25] MEDS ORDERED: ONDANSETRON IV *ER 4 MG/2 ML VIAL IV ONE (23:30)
[2017-05-25] MEDS ORDERED: HYDROMORPHONE 1 MG/1 ML DISP.SYRIN IV ONE (23:30)
--- NOTE | 2017-05-25 23:37 | NUR ---
PATIENT REFUSED CXR, DR. JUAREZ AWARE.
[2017-05-25] MEDS ORDERED: HYDROMORPHONE 2 MG/1 ML DISP.SYRIN ONE (23:43)
[2017-05-25] MEDS ORDERED: ONDANSETRON 4 MG/2 ML VIAL ONE (23:43)
[2017-05-25 23:49] LABS: BASOPHILS # (AUTO) 0.1 K/uL (0.0-8.0); BASOPHILS % (AUTO) 0.9 % (0.0-2.0); EOSINOPHILS # (AUTO) 0.1 K/uL (0.0-0.7); EOSINOPHILS % (AUTO) 0.4 % (0.0-7.0); HEMATOCRIT 24.5 % (31.2-41.9); HEMOGLOBIN 7.6 g/dL (10.9-14.3); LYMPHOCYTES # (AUTO) 1.2 K/uL (20.0-40.0); LYMPHOCYTES % (AUTO) 7.5 % (20.5-51.5); MEAN CORPUSCULAR HEMOGLOBIN 26.2 uug (24.7-32.8); MEAN CORPUSCULAR HGB CONC 31 g/dL (32.3-35.6); MEAN CORPUSCULAR VOLUME 84.4 fL (75.5-95.3); MONOCYTES # (AUTO) 0.9 K/uL (2.0-10.0); NEUTROPHILS # (AUTO) 13.5 K/uL (1.8-8.9); NEUTROPHILS % (AUTO) 85.2 % (38.5-71.5); PLATELET COUNT (AUTO) 552 K/uL (179-408); RED BLOOD CELL COUNT(AUTO) 2.91 MIL/uL (3.63-4.92); WHITE BLOOD COUNT (AUTO) 15.9 K/uL (3.8-11.8)
[2017-05-25 23:51] LABS: POTASSIUM 4.3 mmol/L (3.5-5.1)
[2017-05-25 23:57] LABS: BILIRUBIN,DIRECT 0.1 mg/dL (0.0-0.2); BILIRUBIN,TOTAL 0.2 mg/dL (0.2-1.0)
[2017-05-26] MEDS ORDERED: CEFEPIME HCL 1 G in IV DEXTROSE 5% 50 ML IV ONE ×2
[2017-05-26] MEDS ORDERED: CEFEPIME HCL 1 G VIAL ONE (00:19)
--- NOTE | 2017-05-26 00:19 | NUR ---
PATIENT IS UNABLE TO PROVIDE URINE AT THIS TIME.
[2017-05-26] MEDS ORDERED: IV NORMAL SALINE 1000 ML BAG IV ONE (01:00)
[2017-05-26] MEDS ORDERED: HYDROMORPHONE 1 MG/1 ML DISP.SYRIN IV ONE (01:00)
[2017-05-26] MEDS ORDERED: IV NS 1000 ML 1,000 ML IV PRN (01:02)
[2017-05-26 01:08] LABS: *BILIRUBIN,URIN NEGATIVE (NEGATIVE); *BLOOD, URINE 2+ (NEGATIVE); *CLARITY,URINE CLOUDY (CLEAR); *COLOR,URINE YELLOW (YELLOW); *KETONES,URINE NEGATIVE (NEGATIVE); *PROTEIN,URINE 1+ (NEGATIVE); *UROBILINOGEN,URINE 0.2 E.U./dl (NORMAL); LEUKOCYTE ESTERASE ,URINE 2+ (NEGATIVE); NITRITE, URINE NEGATIVE (NEGATIVE); UGLUCOSE NEGATIVE (NEGATIVE)
[2017-05-26] MEDS ORDERED: MAGNESIUM HYDROXIDE 30 ML LIQUID UDC PO PRN (01:15)
[2017-05-26] MEDS ORDERED: HYDROCODONE/APAP 10-325 MG TABLET PO PRN (01:15)
[2017-05-26] MEDS ORDERED: HYDROCODONE/APAP 5-325MG TABLET PO PRN (01:15)
[2017-05-26] MEDS ORDERED: Z GUARD REMEDY PASTE 57 GM TUBE TOP PRN (01:15)
[2017-05-26] MEDS ORDERED: ONDANSETRON 4 MG/2 ML VIAL IV PRN (01:15)
[2017-05-26] MEDS ORDERED: HYDROMORPHONE 2 MG/1 ML DISP.SYRIN ONE (01:16)
[2017-05-26 01:19] LABS: BACTERIA,URINE MODERATE /HPF (NONE SEEN); RBC,URINE 20-50 /HPF (0-3); WBC,URINE 80-100 /HPF (0-3)
[2017-05-26 01:20] LABS: SQUAMOUS EPITHELIAL CELL,UR MODERATE /HPF (NONE SEEN)
--- NOTE | 2017-05-26 01:44 | NUR ---
Pt. admitted to [facility] , under care of Dr. ANNALEE EDMONDS N.P. Belongs List completed. REPORT GIVEN TO MANI THURSTON.
--- NOTE | 2017-05-26 02:15 | NUR ---
Received patient from ER via gurney, accompanied by mother. Patient is alert, no distress. Patient is admitted to med surg under the care of Victor M Caro NP. Dx: UTI, anemia. Belonging list done, admission process and care plan initiated. New admission orders done by Victor M Caro. Call light within reach, will continue to monitor.
[2017-05-26 02:28] VITALS: BP 125/79
--- NOTE | 2017-05-26 02:30 | NUR ---
Procrit 20,000 unit not available. print line supervisor and charger tester aware. Medication to be given during the day when pharmacy is open. Will endorse to the day shift RN.
[2017-05-26] MEDS ORDERED: HYDROCODONE/APAP 10-325 MG TABLET ONE (03:11)
[2017-05-26] MEDS ORDERED: MORPHINE SULFATE 2 MG/1 ML DISP.SYRIN IV PRN (03:45)
[2017-05-26] MEDS ORDERED: MORPHINE SULFATE 2 MG/1 ML DISP.SYRIN ONE (05:29)
--- NOTE | 2017-05-26 06:00 | NUR ---
Pt awake, c/o of pain lower abdomen and flank area. Per pt, pain management not effective. Gordo, ELECTRONICS TEST ENGINEER aware, will endorse to oncoming shift RN. Pt is in no distress, no SOB. Will continue to monitor.
[2017-05-26 06:53] VITALS: BP 107/68
[2017-05-26] MEDS ORDERED: MORPHINE SULFATE 4 MG/1 ML DISP.SYRIN IV PRN ×2 (08:30→11:30)
--- NOTE | 2017-05-26 08:30 | NUR ---
AWAKE ALERT COOPERATE WELL NO SOB AT THIS TIME RESTING WELL WITH CALL KEENE IN REACH
[2017-05-26] MEDS: FOLIC ACID 1 MG TABLET PO SCH ×2 (09:14→17:16)
[2017-05-26] MEDS: MYCOPHENOLATE MOFETIL 250 MG CAPSULE PO SCH ×2 (09:14→20:34)
[2017-05-26] MEDS: FAMOTIDINE 20 MG TABLET PO SCH ×2 (09:14→17:16)
[2017-05-26] MEDS: LACTOBACILLUS RHAMNOSUS GG 1 EACH CAPSULE PO SCH ×2 (09:14→20:35)
[2017-05-26] MEDS: predniSONE 5 MG TABLET PO SCH (09:15)
[2017-05-26] MEDS: EPOETIN ALFA 20,000 UNIT/ML ML SQ SCH (09:52)
[2017-05-26] MEDS: MORPHINE SULFATE 4 MG/1 ML DISP.SYRIN IV PRN ×4 (10:33→23:24)
--- NOTE | 2017-05-26 11:00 | NUR ---
DR NARANJO,N SEE PATIENT AND LAB RESULT AND NEW ORDER IN CHART FOR PAIN MEDICINE
[2017-05-26 11:38] VITALS: BP 110/76
[2017-05-26] MEDS: CEFEPIME HCL 1 G in IV DEXTROSE 5% 50 ML IV SCH ×2 (11:52→20:35)
[2017-05-26] MEDS: TACROLIMUS ANHYDROUS 1 MG CAPSULE PO SCH ×2 (11:52→20:35)
[2017-05-26] MEDS: ACETAMINOPHEN 325 MG TABLET PO PRN ×2 (12:21→20:54)
[2017-05-26] MEDS: FERROUS SULFATE 325 MG TABEC PO SCH (14:10)
[2017-05-26 15:40] VITALS: BP 120/81
[2017-05-26] MEDS: IV NS 1000 ML 1,000 ML IV PRN (17:17)
--- NOTE | 2017-05-26 17:30 | NUR ---
CONDITION STABLE PAIN UNDER CONTROL NO SOB OR ACUTE DISTRESS SAFETY MEASURE PROVIDED CALL LIGHT IN REACH
[2017-05-26] MEDS: VANCOMYCIN FOR PO/GT/NG USE PO SCH ×2 (18:53→23:24)
--- NOTE | 2017-05-26 19:30 | NUR ---
PT ALERT AND ORIENTED IN BED. NO DISTRESS NOTED. IV INTACT AND PATENT. COMPLIANT WITH NURSING CARE. WILL CONTINUE TO MONITOR. ALL NEEDS MET. SAFETY MAINTAINED. CALL LIGHT WITHIN REACH.
[2017-05-26 20:45] VITALS: BP 120/76
[2017-05-27] MEDS ORDERED: MORPHINE SULFATE 4 MG/1 ML DISP.SYRIN ONE (02:20)
[2017-05-27] MEDS: MORPHINE SULFATE 4 MG/1 ML DISP.SYRIN IV PRN ×7 (02:29→23:53)
[2017-05-27 04:34] VITALS: BP 107/65
[2017-05-27] MEDS: VANCOMYCIN FOR PO/GT/NG USE PO SCH ×4 (05:31→23:46)
[2017-05-27] MEDS: IV NS 1000 ML 1,000 ML IV PRN (05:35)
[2017-05-27] MEDS ORDERED: MORPHINE SULFATE 2 MG/1 ML DISP.SYRIN ONE (05:40)
--- NOTE | 2017-05-27 06:47 | NUR ---
PT ALERT AND ORIENTED IN BED. HOB ELEVATED. PT ON 2L NC. PAIN MEDICATION GIVEN ORDERED FOR BACK PAIN. SAFETY MAINTAINED. CALL LIGHT WITHIN REACH.
[2017-05-27 07:39] LABS: BASOPHILS # (AUTO) 0.1 K/uL (0.0-8.0); BASOPHILS % (AUTO) 0.6 % (0.0-2.0); EOSINOPHILS # (AUTO) 0.3 K/uL (0.0-0.7); EOSINOPHILS % (AUTO) 2.8 % (0.0-7.0); LYMPHOCYTES # (AUTO) 1.8 K/uL (20.0-40.0); LYMPHOCYTES % (AUTO) 14.3 % (20.5-51.5); MEAN CORPUSCULAR HEMOGLOBIN 26.6 uug (24.7-32.8); MEAN CORPUSCULAR HGB CONC 31 g/dL (32.3-35.6); MEAN CORPUSCULAR VOLUME 86.3 fL (75.5-95.3); MONOCYTES # (AUTO) 0.8 K/uL (2.0-10.0); MONOCYTES % (AUTO) 6.5 % (0.0-11.0); NEUTROPHILS # (AUTO) 9.6 K/uL (1.8-8.9); NEUTROPHILS % (AUTO) 75.8 % (38.5-71.5); PLATELET COUNT (AUTO) 478 K/uL (179-408); RED BLOOD CELL COUNT(AUTO) 2.62 MIL/uL (3.63-4.92); WHITE BLOOD COUNT (AUTO) 12.6 K/uL (3.8-11.8)
[2017-05-27 07:41] LABS: CREATININE 1.1 mg/dL (0.6-1.3); MAGNESIUM 1.3 mg/dL (1.8-2.4); PHOSPHOROUS 3.8 mg/dL (2.5-4.9); POTASSIUM 4.6 mmol/L (3.5-5.1)
[2017-05-27 07:53] LABS: HEMATOCRIT 22.6 % (31.2-41.9)
--- NOTE | 2017-05-27 08:30 | NUR ---
AWAKE ALERT COOPERATE WELL NO SOB PAIN UNDER CONTROL BY MORPHINE PRN CONTINUE IVF RESTING WELL WITH CALL LIGHT IN REACH AND INSTRUCTION TO CALL WHEN NEEDED
[2017-05-27] MEDS: predniSONE 5 MG TABLET PO SCH (09:00)
[2017-05-27] MEDS: FERROUS SULFATE 325 MG TABEC PO SCH (09:00)
[2017-05-27] MEDS: CEFEPIME HCL 1 G in IV DEXTROSE 5% 50 ML IV SCH ×2 (09:00→20:43)
[2017-05-27] MEDS: FOLIC ACID 1 MG TABLET PO SCH ×2 (09:01→16:30)
[2017-05-27] MEDS: MYCOPHENOLATE MOFETIL 250 MG CAPSULE PO SCH ×2 (09:01→20:37)
[2017-05-27] MEDS: FAMOTIDINE 20 MG TABLET PO SCH ×2 (09:01→16:30)
[2017-05-27] MEDS: TACROLIMUS ANHYDROUS 1 MG CAPSULE PO SCH ×2 (09:01→20:37)
[2017-05-27] MEDS: LACTOBACILLUS RHAMNOSUS GG 1 EACH CAPSULE PO SCH ×2 (09:04→20:37)
[2017-05-27 09:41] LABS: BAND % (MANUAL) 6 % (0-10); EOSINOPHILS % (MANUAL) 3 % (0-8); LYMPHOCYTES % (MANUAL) 17 % (20-40); MONOCYTES % (MANUAL) 4 % (2-10); NEUTROPHILS % (MANUAL) 70 % (42-75)
[2017-05-27 10:06] LABS: MAGNESIUM 1.3 mg/dL (1.8-2.4)
[2017-05-27] MEDS ORDERED: MORPHINE SULFATE 4 MG/1 ML DISP.SYRIN IM PRN (11:00)
[2017-05-27 11:30] VITALS: BP 109/69
[2017-05-27] MEDS: MAGNESIUM SULFATE/D5W 100 ML IV SCH ×2 (11:40→14:10)
[2017-05-27 15:50] VITALS: BP 104/71
--- NOTE | 2017-05-27 16:00 | NUR ---
DR BENTON SEE PATIENT AND LAB RESULT NO NEW ORDER CONTINUE SAME ANTIBIOTICS
--- NOTE | 2017-05-27 18:00 | NUR ---
STABLE HEMODYNAMIC VS STABLE NO SOB PAIN UNDER CONTROL AND SAFETY MEASURE PROVIDED CALL LIGHT IN REACH CONTINUE IVF
--- NOTE | 2017-05-27 20:00 | NUR ---
RECEIVED PATIENT AWAKE IN BED. A/O X4. C/O MILD PAIN, BUT PAIN MEDICATION IS NOT DUE AT THIS TIME. PATIENT VERBALIZED UNDERSTANDING. VSS. IVF INFUSING WELL TO RIGHT FA. ON RA. CALL LIGHT IN REACH. ALL NEEDS ATTENDED. WILL CONTINUE TO MONITOR AND ASSESS.
[2017-05-27 20:16] VITALS: BP 114/78
[2017-05-27] MEDS: ACETAMINOPHEN 325 MG TABLET PO PRN (23:46)
[2017-05-28 00:08] VITALS: BP 125/81
[2017-05-28] MEDS: IV NS 1000 ML 1,000 ML IV PRN (00:19)
[2017-05-28] MEDS: MORPHINE SULFATE 4 MG/1 ML DISP.SYRIN IV PRN ×9 (02:38→23:30)
[2017-05-28 04:00] VITALS: BP 110/76
[2017-05-28] MEDS: VANCOMYCIN FOR PO/GT/NG USE PO SCH ×3 (05:44→17:34)
--- NOTE | 2017-05-28 05:45 | NUR ---
PATIENT AWAKE IN BED. SLEPT AT INTERVALS. C/O PAIN. PATIENT GIVEN MORPHINE 4MG IV PRN PER WOODWORKING BENCH CARPENTER. IVF INFUSING WELL TO RIGHT FA. CALL LIGHT IN REACH. ALL NEEDS ATTENDED. WILL CONTINUE TO MONITOR.
[2017-05-28 07:52] LABS: BASOPHILS # (AUTO) 0.1 K/uL (0.0-8.0); BASOPHILS % (AUTO) 1.1 % (0.0-2.0); EOSINOPHILS # (AUTO) 0.4 K/uL (0.0-0.7); EOSINOPHILS % (AUTO) 3.6 % (0.0-7.0); HEMATOCRIT 22.4 % (31.2-41.9); LYMPHOCYTES # (AUTO) 1.9 K/uL (20.0-40.0); LYMPHOCYTES % (AUTO) 15.4 % (20.5-51.5); MEAN CORPUSCULAR HEMOGLOBIN 26.9 uug (24.7-32.8); MEAN CORPUSCULAR HGB CONC 31 g/dL (32.3-35.6); MEAN CORPUSCULAR VOLUME 86.7 fL (75.5-95.3); MONOCYTES % (AUTO) 7.7 % (0.0-11.0); NEUTROPHILS % (AUTO) 72.2 % (38.5-71.5); PLATELET COUNT (AUTO) 478 K/uL (179-408); RED BLOOD CELL COUNT(AUTO) 2.59 MIL/uL (3.63-4.92); WHITE BLOOD COUNT (AUTO) 12.4 K/uL (3.8-11.8)
[2017-05-28 08:03] LABS: HEMOGLOBIN 6.9 g/dL (10.9-14.3)
[2017-05-28 08:04] LABS: CREATININE 1.1 mg/dL (0.6-1.3); MAGNESIUM 1.7 mg/dL (1.8-2.4); PHOSPHOROUS 3.9 mg/dL (2.5-4.9); POTASSIUM 4.8 mmol/L (3.5-5.1)
--- NOTE | 2017-05-28 08:30 | NUR ---
awake alert and oriented, states has pain on the lower back and abdomen, medicated as ordered, explained plan of care, verbalized understanding, informed Dr Wren re Hbg of 6.9d and magnesium of 1.7, order given, call light within reach
[2017-05-28] MEDS: FAMOTIDINE 20 MG TABLET PO SCH ×2 (08:35→17:34)
[2017-05-28] MEDS: MYCOPHENOLATE MOFETIL 250 MG CAPSULE PO SCH ×2 (08:35→20:35)
[2017-05-28] MEDS: FERROUS SULFATE 325 MG TABEC PO SCH (08:35)
[2017-05-28] MEDS: predniSONE 5 MG TABLET PO SCH (08:35)
[2017-05-28] MEDS: FOLIC ACID 1 MG TABLET PO SCH ×2 (08:35→17:34)
[2017-05-28] MEDS: LACTOBACILLUS RHAMNOSUS GG 1 EACH CAPSULE PO SCH ×2 (08:36→20:35)
[2017-05-28] MEDS: TACROLIMUS ANHYDROUS 1 MG CAPSULE PO SCH ×2 (08:36→20:35)
[2017-05-28 09:04] LABS: BAND % (MANUAL) 6 % (0-10); EOSINOPHILS % (MANUAL) 5 % (0-8); LYMPHOCYTES % (MANUAL) 15 % (20-40); MONOCYTES % (MANUAL) 5 % (2-10); NEUTROPHILS % (MANUAL) 69 % (42-75)
[2017-05-28] MEDS: CEFEPIME HCL 1 G in IV DEXTROSE 5% 50 ML IV SCH ×2 (09:15→20:35)
[2017-05-28] MEDS: MAGNESIUM SULFATE/D5W 100 ML IV SCH ×2 (10:47→12:38)
[2017-05-28 11:05] VITALS: BP 116/70
--- NOTE | 2017-05-28 14:00 | NUR ---
seen by Dr Victoria
--- NOTE | 2017-05-28 14:17 | NUR ---
Nutritional Screening Consult Diagnosis UTI, anemia, moderate to severe malnutrition Pertinent Medical Hx/Surgical Hx s/p renal transplant, chronic immunosuppressant therapy, recurrent UTIs, chronic opiate use, chronic anemia, GERD, chronic low back pain, anemia Subjective Information 31 y/o female admitted for UTI, presents with moderate to severe malnutrition. Patient assessed in response to MD consult for poor appetite/weight loss. Patient appeared mildly undernourished for height. Reported h/o poor appetite, states appetite has improved. Reported 8 lb weight loss within the past 3 months d/t recent illnesses and poor appetite. Patient denies any GI symptoms, tolerating diet. RD educated patient on high fiber diet. Wt discrepancy noted, was admitted on 05/21 with wt of 109 lbs- rec to reweigh pt Per pt- she lost wt d/t poor appetite, noted to improve I/O: 4850/-- (05/20) LBM: 05/19 Abd: soft, bowel sounds present per chart Current Diet Order/Nutrition Support Renal, 2.5 gm K + Novasource Renal Patient /S.O Can Pertinent Medications morphine, procrit, dilaudid, ferrous sulfate, culturelle, folic acid, prednisone Pertinent Labs 05/25: WBC 15.9H, Alb 1.8L; H/H-7.6/24.5 (l/l) 5 feet Height (Inches) 3.00 inches Patient Height 63 in Current Weight 119 lbs Body Mass Index (BMI) 21.1 Recent Weight Change Yes Gastrointestinal Symptoms None Food Allergies No Cultural/Ethnic/Yazidism Belief no roman catholic affiliation Usual diet at home regular Skin Integrity/Comment: No skin issues reported Current %PO Good (75-100%) Calories/Kcals/Kg 25-30 kcal/kg IBW Kcals Calculated 6720-0577 kcal/day Protein g/k-1.2 gm/kg IBW Protein Calculated 52-62 gm/day Fluid: ml 1400 ml/day Nutrition Problem #1 Unintentional weight loss Signs/Symptoms #1 patient report of 8 lb weight loss over the past 3 months (7% weight change) Etiology #1 recent illnesses Muscle Mass (Non-Severe) Mild Depletion (Moderate) Is there a minimum of two criteria selected Yes Malnutrition related to morbid obesity No Recommendations by RD Increase Calorie intake Protein supplementation Comments Intervention: - Continue renal specific diet Monitor/Evaluate: - PO intakes, tolerance, appetite Expected Outcomes/Goals - Consume at least 75% of meals - No weight loss during length of stay, weight WNL Normal Weight % 85% - 90% (Mild) Body Mass Index 18 - 24 (Mild) Addendum: 06/01/17 at [address] Amended: Links added.
--- NOTE | 2017-05-28 15:06 | NUR ---
IVF rate decreased to 60ml/hr
[2017-05-28 15:14] VITALS: BP 119/82
--- NOTE | 2017-05-28 17:34 | NUR ---
pain med Morphine 4mg iv given but conection is loose and leaked
--- NOTE | 2017-05-28 17:53 | NUR ---
iv connection tight , no leak noted at this time, Morphine 4 mg iv given for c/o lower back/ abdomen pain, no distress noted, all needs attended and met, call light within reach, no bleeding noted
--- NOTE | 2017-05-28 19:30 | NUR ---
Received patient laying comfortably in bed with family at bedside. A&O x 4. No acute distress noted. IVF infusing. Room is left clutter free, bed is in low and locked position. Safety initiated. Call light within reach. Will continue to monitor.
[2017-05-28 20:00] VITALS: BP 120/80
--- NOTE | 2017-05-28 23:36 | NUR ---
Patient c/o abdominal pain 01/18. Meds (Morphine) given, will continue to monitor its effectiveness.
[2017-05-29] VITALS (11 sets, daily range): BP systolic 106–120; BP diastolic 64–77
[2017-05-29] MEDS: VANCOMYCIN FOR PO/GT/NG USE PO SCH ×5 (01:00→23:31)
[2017-05-29] MEDS: MORPHINE SULFATE 4 MG/1 ML DISP.SYRIN IV PRN ×7 (02:40→23:29)
--- NOTE | 2017-05-29 02:40 | NUR ---
Patient c/o abdominal pain 01/18. Meds (Morphine) given, will continue to monitor its effectiveness.
[2017-05-29] MEDS ORDERED: MORPHINE SULFATE 4 MG/1 ML DISP.SYRIN ONE ×2 (02:52→05:26)
--- NOTE | 2017-05-29 03:31 | NUR ---
Offered wound dressing change, patient keeps delaying it. He says; "he can wait". Advised him not too wait too long. He understood. Will continue to monitor.
[2017-05-29] MEDS: IV NS 1000 ML 1,000 ML IV PRN (05:32)
--- NOTE | 2017-05-29 05:38 | NUR ---
Patient slept poorly t/o shift. She was having to need to use the toilet every so often. C/O abdomen and back pain 02/18, meds given stated relief, Morphine was effective. IV Fluid infusing ok. Urinating ok. No acute distress noted. Vital signs stable. NO BM. Room was kept clutter free, bed is in low and locked position. Safety and comfort measures maintained t/o shift. All meds given as ordered. All needs met.
--- NOTE | 2017-05-29 05:40 | NUR ---
Patient c/o abdominal pain 01/18. Meds (Morphine) given, will continue to monitor its effectiveness.
--- NOTE | 2017-05-29 08:00 | NUR ---
AWAKE ALERT COOPERATE WELL NO SOB OR PAIN AT THIS TIME CONTINUE IVF EAT BREAKFAST MOD AMT RESTING WITH CALL LIGHT IN REACH
[2017-05-29] MEDS: CEFEPIME HCL 1 G in IV DEXTROSE 5% 50 ML IV SCH ×2 (08:32→21:12)
[2017-05-29] MEDS: FOLIC ACID 1 MG TABLET PO SCH ×2 (08:33→16:47)
[2017-05-29] MEDS: LACTOBACILLUS RHAMNOSUS GG 1 EACH CAPSULE PO SCH ×2 (08:33→20:50)
[2017-05-29] MEDS: predniSONE 5 MG TABLET PO SCH (08:33)
[2017-05-29] MEDS: FERROUS SULFATE 325 MG TABEC PO SCH (08:33)
[2017-05-29] MEDS: MYCOPHENOLATE MOFETIL 250 MG CAPSULE PO SCH ×2 (08:33→20:50)
[2017-05-29] MEDS: TACROLIMUS ANHYDROUS 1 MG CAPSULE PO SCH ×2 (08:33→20:50)
[2017-05-29] MEDS: FAMOTIDINE 20 MG TABLET PO SCH ×2 (08:33→16:47)
[2017-05-29] MEDS ORDERED: MAGNESIUM SULFATE/D5W 100 ML IV SCH (12:15)
--- NOTE | 2017-05-29 14:00 | NUR ---
BLOOD BANK /LAB WAS CALL AND STILL PENDING FOR PRBC IT WAS NOT READY YET .,LAB WILL CALL WHEN BLOOD READY AND PATIENT WAS INFORM
[2017-05-29] MEDS: ACETAMINOPHEN 325 MG TABLET PO PRN (16:47)
--- NOTE | 2017-05-29 17:05 | NUR ---
START PRBC INFUSION WELL NO REACTION VS STABLE LOW GRADE TEMP TYL GIVEN PRIOR START BLOOD TRANSFUSION
--- NOTE | 2017-05-29 18:30 | NUR ---
STABLE HEMODYNAMIC STAUS PAIN UNDER CONTROL SAFETY MEASURE PROVIDED CALL LIGHT IN REACH
--- NOTE | 2017-05-29 19:30 | NUR ---
Received pt resting in bed, alert, responsive, in no distress, blood transfusion infusing near completion, no adverse reaction noted, no SOB. Will continue to monitor.
--- NOTE | 2017-05-29 20:00 | NUR ---
Blood transfusion completed, pt tolerated procedure well, no distress, no adverse reaction, no SOB noted, VS stable, pt is afebrile.
--- NOTE | 2017-05-29 20:55 | NUR ---
IV flushed, pt stated "I tasted it". Morphine 6mg given, pt c/o of burning sensation at IV site, slight leakage noted. Pt c/o of medication not effective and not receiving full dose d/t IV infiltrated. Will restart new IV site.
[2017-05-30] MEDS: MORPHINE SULFATE 4 MG/1 ML DISP.SYRIN IV PRN ×8 (02:29→23:38)
--- NOTE | 2017-05-30 02:40 | NUR ---
Patient noted to have temp 101.1F. Patient is alert, in no distress. Cooling measures done, oral fluids encouraged as tolerated. Will notify MD.
[2017-05-30] MEDS: ACETAMINOPHEN 325 MG TABLET PO PRN (02:41)
--- NOTE | 2017-05-30 02:55 | NUR ---
MD menswear salesperson Dr. Jeyson Xiao notified regarding patient's temp 101.1F. Waiting for call back/orders.
--- NOTE | 2017-05-30 03:38 | NUR ---
VERBAL ORDER TAKEN FROM DR. SAMMY WRIGHT. READ BACK DONE AND CARRIED OUT. BLOOD CULTURE STAT ORDERED, CALLED LAB.
[2017-05-30 04:00] VITALS: BP 119/78
--- NOTE | 2017-05-30 04:30 | NUR ---
Patient refused blood draw for blood culture, prefers to be drawn after 7am. Explained to the patient MD's stat order, pt verbalized understanding but still refused and would rather have blood draw done after 7am.
[2017-05-30] MEDS: IV NS 1000 ML 1,000 ML IV PRN ×2 (05:41→23:55)
[2017-05-30] MEDS: VANCOMYCIN FOR PO/GT/NG USE PO SCH ×3 (05:41→17:40)
[2017-05-30] MEDS ORDERED: MORPHINE SULFATE 4 MG/1 ML DISP.SYRIN ONE (05:46)
[2017-05-30] MEDS ORDERED: MORPHINE SULFATE 2 MG/1 ML DISP.SYRIN ONE (05:47)
--- NOTE | 2017-05-30 06:00 | NUR ---
Patient slept intermittently, in no distress. Pt's temp down to 100.9F. Continued cooling measures, pt verbalized understanding, MD aware. Pain management as ordered. IVF infusing, no infiltration noted. Antibiotics administered as ordered, no adverse reaction noted. Call light within reach, will continue to monitor.
--- NOTE | 2017-05-30 08:00 | NUR ---
AWAKE ALERT COOPERATE WELL STATE PAIN MEDICINE HELP TO RELIEF PAIN NO ACUTE DISTRESS CONTINUE IVF RESTING WITH CALL LIGHT IN REACH
[2017-05-30 08:06] LABS: BASOPHILS # (AUTO) 0.1 K/uL (0.0-8.0); BASOPHILS % (AUTO) 0.9 % (0.0-2.0); EOSINOPHILS # (AUTO) 0.3 K/uL (0.0-0.7); EOSINOPHILS % (AUTO) 1.9 % (0.0-7.0); HEMATOCRIT 27.9 % (31.2-41.9); HEMOGLOBIN 8.8 g/dL (10.9-14.3); LYMPHOCYTES # (AUTO) 2.1 K/uL (20.0-40.0); LYMPHOCYTES % (AUTO) 12.4 % (20.5-51.5); MEAN CORPUSCULAR HEMOGLOBIN 26.9 uug (24.7-32.8); MEAN CORPUSCULAR HGB CONC 31 g/dL (32.3-35.6); MEAN CORPUSCULAR VOLUME 85.5 fL (75.5-95.3); MONOCYTES # (AUTO) 1.7 K/uL (2.0-10.0); MONOCYTES % (AUTO) 10.1 % (0.0-11.0); NEUTROPHILS # (AUTO) 12.5 K/uL (1.8-8.9); NEUTROPHILS % (AUTO) 74.7 % (38.5-71.5); PLATELET COUNT (AUTO) 484 K/uL (179-408); RED BLOOD CELL COUNT(AUTO) 3.26 MIL/uL (3.63-4.92); WHITE BLOOD COUNT (AUTO) 16.8 K/uL (3.8-11.8)
[2017-05-30] MEDS: FAMOTIDINE 20 MG TABLET PO SCH ×2 (08:41→17:40)
[2017-05-30] MEDS: FOLIC ACID 1 MG TABLET PO SCH ×2 (08:41→17:40)
[2017-05-30] MEDS: TACROLIMUS ANHYDROUS 1 MG CAPSULE PO SCH ×2 (08:41→20:29)
[2017-05-30] MEDS: MYCOPHENOLATE MOFETIL 250 MG CAPSULE PO SCH ×2 (08:41→20:30)
[2017-05-30] MEDS: FERROUS SULFATE 325 MG TABEC PO SCH (08:42)
[2017-05-30] MEDS: CEFEPIME HCL 1 G in IV DEXTROSE 5% 50 ML IV SCH ×2 (08:42→20:29)
[2017-05-30] MEDS: predniSONE 5 MG TABLET PO SCH (08:42)
[2017-05-30 09:14] LABS: BILIRUBIN,TOTAL 0.3 mg/dL (0.2-1.0); CREATININE 1.1 mg/dL (0.6-1.3); MAGNESIUM 1.5 mg/dL (1.8-2.4); PHOSPHOROUS 3.3 mg/dL (2.5-4.9); POTASSIUM 5.3 mmol/L (3.5-5.1); TOTAL PROTEIN, SERUM 5.8 g/dL (6.4-8.2)
[2017-05-30] MEDS: LACTOBACILLUS RHAMNOSUS GG 1 EACH CAPSULE PO SCH ×2 (10:40→20:30)
[2017-05-30 11:31] LABS: BAND % (MANUAL) 10 % (0-10); EOSINOPHILS % (MANUAL) 1 % (0-8); LYMPHOCYTES % (MANUAL) 11 % (20-40); MONOCYTES % (MANUAL) 8 % (2-10); NEUTROPHILS % (MANUAL) 70 % (42-75)
[2017-05-30 11:48] VITALS: BP 108/73
[2017-05-30 15:37] VITALS: BP 107/72
--- NOTE | 2017-05-30 18:38 | NUR ---
Patient awake and alert laying in bed with family at bedside. IV NS still infusing. IV site is patent and intact, no s/sx infection, no infiltration noted. Pain controlled with PRN Morphine 6mg q4h. Bed in low position with call light within reach.
[2017-05-30 20:00] VITALS: BP 111/69
[2017-05-31] MEDS: VANCOMYCIN FOR PO/GT/NG USE PO SCH ×4 (00:33→18:11)
[2017-05-31] MEDS: MORPHINE SULFATE 4 MG/1 ML DISP.SYRIN IV PRN ×6 (02:36→22:57)
[2017-05-31] MEDS: ACETAMINOPHEN 325 MG TABLET PO PRN ×2 (02:45→22:18)
--- NOTE | 2017-05-31 02:45 | NUR ---
Patient noted to have temp of 102.4F, second reading 102.8F. Cooling measures done. Administered medication for fever as ordered. Will reassess and monitor. MD aware of patient's temperature trend during hospitalization, previous blood cultures done on 05/25/17 and 05/30/17.
[2017-05-31 04:30] VITALS: BP 110/75
[2017-05-31] MEDS ORDERED: MORPHINE SULFATE 4 MG/1 ML DISP.SYRIN ONE (05:56)
--- NOTE | 2017-05-31 06:00 | NUR ---
Patient slept intermittently, in no distress. Reassessments on temperature done, continued cooling measures. Temp down to 100.1F Will endorse to day shift RN. Pain management as ordered. Right thigh noted swelling, red. Dr. Prieto aware, per pt, possible order of diagnostic test.
[2017-05-31] MEDS: FAMOTIDINE 20 MG TABLET PO SCH ×2 (09:19→17:57)
[2017-05-31] MEDS: FERROUS SULFATE 325 MG TABEC PO SCH (09:19)
[2017-05-31] MEDS: MYCOPHENOLATE MOFETIL 250 MG CAPSULE PO SCH ×2 (09:19→20:10)
[2017-05-31] MEDS: predniSONE 5 MG TABLET PO SCH (09:19)
[2017-05-31] MEDS: FOLIC ACID 1 MG TABLET PO SCH ×2 (09:19→17:57)
[2017-05-31] MEDS: LACTOBACILLUS RHAMNOSUS GG 1 EACH CAPSULE PO SCH ×2 (09:19→20:09)
[2017-05-31] MEDS: TACROLIMUS ANHYDROUS 1 MG CAPSULE PO SCH ×2 (09:20→20:09)
[2017-05-31] MEDS: CEFEPIME HCL 1 G in IV DEXTROSE 5% 50 ML IV SCH ×2 (10:35→20:11)
--- NOTE | 2017-05-31 10:39 | NUR ---
PT GIVEN CEFEPIME SOON PHARMACY BROUGHT MEDICATION UP TO THE UNIT.
--- NOTE | 2017-05-31 10:41 | NUR ---
PROCRIT HELD UNTIL LABS ARE DONE AND A HG LEVEL IS KNOWN FROM LAB.
--- NOTE | 2017-05-31 10:44 | NUR ---
MORPHINE WAS PULLED OUT OF THE PYXIS ON THE FOLLOWING DATES 05/29 AT 0252, 05/29 0526, 05/31 0548
[2017-05-31 11:09] LABS: CREATININE 1.2 mg/dL (0.6-1.3); POTASSIUM 5.2 mmol/L (3.5-5.1)
[2017-05-31 11:15] LABS: BASOPHILS # (AUTO) 0.1 K/uL (0.0-8.0); BASOPHILS % (AUTO) 0.8 % (0.0-2.0); EOSINOPHILS # (AUTO) 0.3 K/uL (0.0-0.7); HEMATOCRIT 28.9 % (31.2-41.9); HEMOGLOBIN 8.8 g/dL (10.9-14.3); LYMPHOCYTES # (AUTO) 2.4 K/uL (20.0-40.0); MEAN CORPUSCULAR HEMOGLOBIN 26.5 uug (24.7-32.8); MEAN CORPUSCULAR HGB CONC 30 g/dL (32.3-35.6); MEAN CORPUSCULAR VOLUME 87.4 fL (75.5-95.3); MONOCYTES # (AUTO) 1.8 K/uL (2.0-10.0); MONOCYTES % (AUTO) 10.9 % (0.0-11.0); NEUTROPHILS # (AUTO) 12.2 K/uL (1.8-8.9); NEUTROPHILS % (AUTO) 72.3 % (38.5-71.5); PLATELET COUNT (AUTO) 503 K/uL (179-408); RED BLOOD CELL COUNT(AUTO) 3.31 MIL/uL (3.63-4.92); WHITE BLOOD COUNT (AUTO) 16.9 K/uL (3.8-11.8)
[2017-05-31 11:17] LABS: MAGNESIUM 1.2 mg/dL (1.8-2.4)
[2017-05-31 11:31] VITALS: BP 104/71
[2017-05-31] MEDS: EPOETIN ALFA 20,000 UNIT/ML ML SQ SCH (11:40)
--- NOTE | 2017-05-31 11:52 | NUR ---
PROCRIT GIVEN SOON THE LABS WERE UP FOR TODAY HG LEVEL 8.8
[2017-05-31] MEDS ORDERED: MAGNESIUM OXIDE 400 MG TABLET PO ONE (12:00)
[2017-05-31 12:14] LABS: BAND % (MANUAL) 6 % (0-10); EOSINOPHILS % (MANUAL) 2 % (0-8); LYMPHOCYTES % (MANUAL) 15 % (20-40); MONOCYTES % (MANUAL) 11 % (2-10); NEUTROPHILS % (MANUAL) 66 % (42-75)
[2017-05-31 16:00] VITALS: BP 116/80
--- NOTE | 2017-05-31 18:45 | NUR ---
pt observed calm cooperative, not signs of respiratory distress after giving her morphine at 1559. Pt pain is managed. pt vitals are stable no signs of fever at this time. pt compliant with medication.
[2017-05-31] MEDS: MAGNESIUM OXIDE 400 MG TABLET PO SCH (20:09)
[2017-05-31 20:49] VITALS: BP 126/80
[2017-05-31] MEDS: LINEZOLID 600 MG TABLET PO SCH (22:18)
[2017-05-31] MEDS ORDERED: METRONIDAZOLE 500 MG/NS 100ML 100 ML IV ONE (22:49)
[2017-05-31] MEDS: METRONIDAZOLE 500 MG/NS 100ML 500 MG in PREMIXED 1 EACH IV SCH (23:04)
[2017-05-31] MEDS: IV NS 1000 ML 1,000 ML IV PRN (23:04)
[2017-06-01] MEDS ORDERED: MORPHINE SULFATE 10 MG/1 ML DISP.SYRIN ONE (02:29)
[2017-06-01] MEDS: MORPHINE SULFATE 4 MG/1 ML DISP.SYRIN IV PRN ×6 (03:56→23:20)
[2017-06-01] MEDS ORDERED: MORPHINE SULFATE 2 MG/1 ML DISP.SYRIN ONE (04:09)
[2017-06-01 04:48] VITALS: BP 106/65
--- NOTE | 2017-06-01 06:00 | NUR ---
Patient slept intermittently, in no distress. Pain management as ordered, current temperature at 98.9F. IV antibiotic administered as ordered, no adverse reaction noted. IVF infusing, no infiltration noted. Call light within reach, will continue to monitor.
[2017-06-01] MEDS: METRONIDAZOLE 500 MG/NS 100ML 500 MG in PREMIXED 1 EACH IV SCH ×3 (06:53→22:11)
[2017-06-01] MEDS ORDERED: METRONIDAZOLE 500 MG/NS 100ML 100 ML IV ONE (06:59)
--- NOTE | 2017-06-01 07:45 | NUR ---
PT PLAN OF CARE FOR TODAY IS TO MANAGE PAIN, KEEP TEMPERATURE WNL, PT TEACHING ABOUT NON-PHARMALOCIGAL WAYS OF PAIN MANAGEMENT.
[2017-06-01] MEDS: FERROUS SULFATE 325 MG TABEC PO SCH (08:06)
[2017-06-01] MEDS: LINEZOLID 600 MG TABLET PO SCH ×2 (08:06→22:12)
[2017-06-01] MEDS: FAMOTIDINE 20 MG TABLET PO SCH ×2 (08:06→16:16)
[2017-06-01] MEDS: MYCOPHENOLATE MOFETIL 250 MG CAPSULE PO SCH ×2 (08:06→22:11)
[2017-06-01] MEDS: TACROLIMUS ANHYDROUS 1 MG CAPSULE PO SCH ×2 (08:06→22:10)
[2017-06-01] MEDS: LACTOBACILLUS RHAMNOSUS GG 1 EACH CAPSULE PO SCH ×2 (08:06→22:10)
[2017-06-01] MEDS: predniSONE 5 MG TABLET PO SCH (08:06)
[2017-06-01] MEDS: FOLIC ACID 1 MG TABLET PO SCH ×2 (08:06→16:16)
[2017-06-01] MEDS: CEFEPIME HCL 1 G in IV DEXTROSE 5% 50 ML IV SCH ×2 (10:23→20:03)
[2017-06-01 10:59] VITALS: BP 101/59
[2017-06-01 14:59] VITALS: BP 110/68
--- NOTE | 2017-06-01 17:29 | NUR ---
PT'S PAIN IS MANAGED AT 2/10 WHICH IS THE PTS GOAL. PT IS ATTEMPTING TO USE DISTRACTION TO MANAGE PAIN NON-PHARMACOLOGICALLY. PT UNDERSTAND TEACHING, IS AGREEABLE WITH CARE PLAN. PT IS OBSEREVED RESTING AND HAS NO SIGNS OF RESPIRATORY DISTRESS.
[2017-06-01 19:00] VITALS: BP 111/75
[2017-06-01] MEDS: MAGNESIUM OXIDE 400 MG TABLET PO SCH (22:11)
[2017-06-01] MEDS: IV NS 1000 ML 1,000 ML IV PRN (23:20)
[2017-06-02] MEDS: MORPHINE SULFATE 4 MG/1 ML DISP.SYRIN IV PRN ×7 (02:43→23:24)
[2017-06-02 04:00] VITALS: BP 116/73
[2017-06-02] MEDS: METRONIDAZOLE 500 MG/NS 100ML 500 MG in PREMIXED 1 EACH IV SCH ×3 (05:55→21:58)
--- NOTE | 2017-06-02 06:30 | NUR ---
Repeatedly asked the patient to provide a sample of urine for CT scan procedure. Hat, specimen cup in the toilet, pt verbalized understanding. Per pt, CT scan was previously done at another hospital and waiting for copy of records. As of end of shift, patient has not provided sample of urine. Patient has been urinating throughout the night, ambulating to the toilet. Endorsed to the day shift RN and quilting supervisor.
--- NOTE | 2017-06-02 07:30 | NUR ---
PT AWAKE IN BED AND NO ACUTE DISTRESS. CALL LIGHT WITHIN REACH. ADVISED TO GIVE URINE SAMPLE SOON POSSIBLE. PT VERBALIZED UNDERSTANDING.WILL CONTINUE TO MONITOR.
--- NOTE | 2017-06-02 09:00 | NUR ---
WAITING FOR URINE SAMPLE IN ORDER FOR CT TO BE PERFORMED ASKED PATIENT TO PROVIDE SAMPLE. PT SAID WILL PROVIDE WHEN THE NEED TO URINATE ARISES.
[2017-06-02] MEDS: MYCOPHENOLATE MOFETIL 250 MG CAPSULE PO SCH ×2 (09:26→20:19)
[2017-06-02] MEDS: TACROLIMUS ANHYDROUS 1 MG CAPSULE PO SCH ×2 (09:26→20:19)
[2017-06-02] MEDS: FERROUS SULFATE 325 MG TABEC PO SCH (09:27)
[2017-06-02] MEDS: FAMOTIDINE 20 MG TABLET PO SCH ×2 (09:27→17:10)
[2017-06-02] MEDS: predniSONE 5 MG TABLET PO SCH (09:27)
[2017-06-02] MEDS: LACTOBACILLUS RHAMNOSUS GG 1 EACH CAPSULE PO SCH ×2 (09:27→20:18)
[2017-06-02] MEDS: CEFEPIME HCL 1 G in IV DEXTROSE 5% 50 ML IV SCH (09:27)
[2017-06-02] MEDS: FOLIC ACID 1 MG TABLET PO SCH ×2 (09:27→17:10)
[2017-06-02] MEDS: LINEZOLID 600 MG TABLET PO SCH ×2 (09:31→20:20)
[2017-06-02 10:06] LABS: BASOPHILS # (AUTO) 0.2 K/uL (0.0-8.0); BASOPHILS % (AUTO) 1.1 % (0.0-2.0); EOSINOPHILS # (AUTO) 0.4 K/uL (0.0-0.7); EOSINOPHILS % (AUTO) 2.1 % (0.0-7.0); HEMATOCRIT 28.1 % (31.2-41.9); HEMOGLOBIN 8.5 g/dL (10.9-14.3); LYMPHOCYTES # (AUTO) 2.9 K/uL (20.0-40.0); LYMPHOCYTES % (AUTO) 17.5 % (20.5-51.5); MEAN CORPUSCULAR HGB CONC 30 g/dL (32.3-35.6); MEAN CORPUSCULAR VOLUME 85.7 fL (75.5-95.3); MONOCYTES # (AUTO) 1.3 K/uL (2.0-10.0); MONOCYTES % (AUTO) 8.1 % (0.0-11.0); NEUTROPHILS # (AUTO) 11.8 K/uL (1.8-8.9); NEUTROPHILS % (AUTO) 71.2 % (38.5-71.5); PLATELET COUNT (AUTO) 508 K/uL (179-408); RED BLOOD CELL COUNT(AUTO) 3.27 MIL/uL (3.63-4.92); WHITE BLOOD COUNT (AUTO) 16.6 K/uL (3.8-11.8)
[2017-06-02 10:13] LABS: BILIRUBIN,TOTAL 0.2 mg/dL (0.2-1.0); CREATININE 1.4 mg/dL (0.6-1.3); MAGNESIUM 1.3 mg/dL (1.8-2.4); PHOSPHOROUS 3.7 mg/dL (2.5-4.9); POTASSIUM 4.7 mmol/L (3.5-5.1); TOTAL PROTEIN, SERUM 5.7 g/dL (6.4-8.2)
[2017-06-02] MEDS ORDERED: MAGNESIUM OXIDE 400 MG TABLET PO ONE (10:45)
[2017-06-02] MEDS: EPOETIN ALFA 20,000 UNIT/ML ML SQ SCH (10:48)
[2017-06-02 11:09] VITALS: BP 110/75
--- NOTE | 2017-06-02 12:00 | NUR ---
ASKED PT FOR URINE SAMPLE, PT STATED THAT URINE WAS IN HAT "BUT CLEANING CREW MUST HAVE THROWN IN OUT" NEW HAT PLACED IN TOILET, WILL CONTINUE TO ENCOURAGE NEED FOR SAMPLE
[2017-06-02 15:42] VITALS: BP 115/76
--- NOTE | 2017-06-02 16:37 | NUR ---
tHE PATIENT REFUSED THE NON-VASCULAR ULTRASOUND AT 10:00 AM. I WENT TO HER ROOM AT 4;30 pm, she still refused the exam. RN Antoinette and agricultural produce sorter Jackie noted.
--- NOTE | 2017-06-02 18:49 | NUR ---
PT AWAKE IN BED. NO URINE SAMPLE RECEIVED FROM PT. MEDICATED FOR PAIN THROUGHOUT SHIFT. [employer] TECH CAME TO PERFORM US ON PT., PT REFUSED AT THAT TIME. AWARE. ALL SAFETY AND COMFORT MEASURES MAINTAINED.
[2017-06-02 19:00] VITALS: BP 114/78
[2017-06-02] MEDS: MEROPENEM 0.5 G in IV NORMAL SALINE 50 ML IV SCH (20:18)
[2017-06-02] MEDS: MAGNESIUM OXIDE 400 MG TABLET PO SCH (20:19)
[2017-06-02] MEDS: IV NS 1000 ML 1,000 ML IV PRN (20:57)
[2017-06-02] MEDS ORDERED: MEROPENEM 0.5 G in IV NORMAL SALINE 50 ML IV SCH (22:00)
[2017-06-03] MEDS: MORPHINE SULFATE 4 MG/1 ML DISP.SYRIN IV PRN ×7 (02:25→23:41)
[2017-06-03] MEDS ORDERED: MORPHINE SULFATE 2 MG/1 ML DISP.SYRIN ONE (02:38)
[2017-06-03 04:00] VITALS: BP 118/79
[2017-06-03] MEDS ORDERED: MORPHINE SULFATE 10 MG/1 ML DISP.SYRIN ONE (05:22)
[2017-06-03] MEDS: METRONIDAZOLE 500 MG/NS 100ML 500 MG in PREMIXED 1 EACH IV SCH ×3 (05:33→21:10)
--- NOTE | 2017-06-03 06:00 | NUR ---
Patient slept intermittently, in no distress. Pain management as ordered. IVF infusing, no infiltration noted. Patient's temperature at 99.5F. Continue cooling measures.
--- NOTE | 2017-06-03 07:45 | NUR ---
MORPHINE WAS PULLED FROM THE [employer] AT 0238 DURING SUPERVISOR STATEMENT CLERKS.
[2017-06-03] MEDS: MEROPENEM 0.5 G in IV NORMAL SALINE 50 ML IV SCH ×2 (08:15→20:18)
[2017-06-03] MEDS: LINEZOLID 600 MG TABLET PO SCH ×2 (08:16→21:03)
[2017-06-03] MEDS: MYCOPHENOLATE MOFETIL 250 MG CAPSULE PO SCH ×2 (08:16→20:19)
[2017-06-03] MEDS: predniSONE 5 MG TABLET PO SCH (08:17)
[2017-06-03] MEDS: FERROUS SULFATE 325 MG TABEC PO SCH (08:17)
[2017-06-03] MEDS: TACROLIMUS ANHYDROUS 1 MG CAPSULE PO SCH ×2 (08:17→20:19)
[2017-06-03] MEDS: FOLIC ACID 1 MG TABLET PO SCH ×2 (08:17→16:47)
[2017-06-03] MEDS: FAMOTIDINE 20 MG TABLET PO SCH ×2 (08:17→16:47)
[2017-06-03] MEDS: LACTOBACILLUS RHAMNOSUS GG 1 EACH CAPSULE PO SCH ×2 (09:11→20:19)
[2017-06-03 10:33] LABS: BASOPHILS # (AUTO) 0.2 K/uL (0.0-8.0); BASOPHILS % (AUTO) 1.2 % (0.0-2.0); EOSINOPHILS # (AUTO) 0.4 K/uL (0.0-0.7); EOSINOPHILS % (AUTO) 2.6 % (0.0-7.0); HEMATOCRIT 28.4 % (31.2-41.9); HEMOGLOBIN 8.6 g/dL (10.9-14.3); LYMPHOCYTES # (AUTO) 2.6 K/uL (20.0-40.0); LYMPHOCYTES % (AUTO) 17.1 % (20.5-51.5); MEAN CORPUSCULAR HEMOGLOBIN 25.7 uug (24.7-32.8); MEAN CORPUSCULAR HGB CONC 30 g/dL (32.3-35.6); MEAN CORPUSCULAR VOLUME 85.6 fL (75.5-95.3); MONOCYTES # (AUTO) 1.1 K/uL (2.0-10.0); MONOCYTES % (AUTO) 7.2 % (0.0-11.0); NEUTROPHILS # (AUTO) 11.1 K/uL (1.8-8.9); NEUTROPHILS % (AUTO) 71.9 % (38.5-71.5); PLATELET COUNT (AUTO) 554 K/uL (179-408); RED BLOOD CELL COUNT(AUTO) 3.32 MIL/uL (3.63-4.92); WHITE BLOOD COUNT (AUTO) 15.5 K/uL (3.8-11.8)
[2017-06-03 10:50] LABS: CREATININE 1.4 mg/dL (0.6-1.3); PHOSPHOROUS 3.1 mg/dL (2.5-4.9); POTASSIUM 4.5 mmol/L (3.5-5.1)
[2017-06-03 10:52] LABS: MAGNESIUM 1.2 mg/dL (1.8-2.4)
[2017-06-03 11:11] LABS: BAND % (MANUAL) 4 % (0-10); BASOPHILS % (MANUAL) 1 % (0-2); EOSINOPHILS % (MANUAL) 3 % (0-8); LYMPHOCYTES % (MANUAL) 18 % (20-40); MONOCYTES % (MANUAL) 8 % (2-10); NEUTROPHILS % (MANUAL) 66 % (42-75)
[2017-06-03 11:40] VITALS: BP 114/78
[2017-06-03 16:08] VITALS: BP 138/75
[2017-06-03 19:00] VITALS: BP 113/72
--- NOTE | 2017-06-03 19:00 | NUR ---
Received patient, awake and alert during initial rounds. Family at bedside. Denies pain at this time. Anticipate needs.
--- NOTE | 2017-06-03 19:02 | NUR ---
PT OBSERVED RESTING IN BED, CALM COOPERATIVE, PT GIVEN MORPHINE TO MANAGE PAIN THROUGHOUT THE DAY. PT IS OFTEN ANXIOUS 5/10 BUT REASSURED AND ALLOWED TO EXPRESS SELF. PT VERBALIZES 1/10 PAIN AFTER DISCUSSION. PT HAS NO SIGNS OF RESPIRATORY DISTRESS.
[2017-06-03] MEDS: IV NS 1000 ML 1,000 ML IV PRN (19:49)
[2017-06-03] MEDS: MAGNESIUM OXIDE 400 MG TABLET PO SCH (20:19)
--- NOTE | 2017-06-04 01:02 | NUR ---
Patient complained of burning at IV site on Right wrist. ER nurse came up to insert a new PIV to the LFA #22. Patent and intact. Old IV removed.
[2017-06-04] MEDS: MORPHINE SULFATE 4 MG/1 ML DISP.SYRIN IV PRN ×6 (02:28→22:55)
[2017-06-04 04:00] VITALS: BP 110/74
[2017-06-04] MEDS: METRONIDAZOLE 500 MG/NS 100ML 500 MG in PREMIXED 1 EACH IV SCH ×3 (05:17→22:05)
--- NOTE | 2017-06-04 06:29 | NUR ---
Remain afebrile. Slept in between care. Medicated 4x for complaint of abdominal pain with relief. Continue on ATB IVPB as ordered without s/s of adverse reaction noted. IVF continuos as ordered for hydration. All needs attended and met. No significant event reported all night. Continue current plan of care.
[2017-06-04] MEDS: MEROPENEM 0.5 G in IV NORMAL SALINE 50 ML IV SCH ×2 (10:18→20:41)
[2017-06-04] MEDS: TACROLIMUS ANHYDROUS 1 MG CAPSULE PO SCH ×2 (10:20→20:40)
[2017-06-04] MEDS: LINEZOLID 600 MG TABLET PO SCH ×2 (10:20→20:45)
[2017-06-04] MEDS: MYCOPHENOLATE MOFETIL 250 MG CAPSULE PO SCH ×2 (10:20→20:40)
[2017-06-04] MEDS: FAMOTIDINE 20 MG TABLET PO SCH ×2 (10:21→18:56)
[2017-06-04] MEDS: FERROUS SULFATE 325 MG TABEC PO SCH (10:21)
[2017-06-04] MEDS: LACTOBACILLUS RHAMNOSUS GG 1 EACH CAPSULE PO SCH ×2 (10:21→20:40)
[2017-06-04] MEDS: predniSONE 5 MG TABLET PO SCH (10:22)
[2017-06-04] MEDS: FOLIC ACID 1 MG TABLET PO SCH ×2 (10:22→18:56)
[2017-06-04 11:30] VITALS: BP 117/73
[2017-06-04] MEDS: IV NS 1000 ML 1,000 ML IV PRN (14:37)
[2017-06-04 16:12] VITALS: BP 115/78
--- NOTE | 2017-06-04 18:30 | NUR ---
Pt remains awake,alert.C/o back pain throughout the shift.Medicated with Morphine 10mg IV x3.Respiration even,unlabored.Spoke with to clarify the dose of Morphine.
[2017-06-04 19:40] VITALS: BP 118/81
[2017-06-04] MEDS: MAGNESIUM OXIDE 400 MG TABLET PO SCH (20:40)
[2017-06-05 03:42] VITALS: BP 125/57
[2017-06-05] MEDS: MORPHINE SULFATE 4 MG/1 ML DISP.SYRIN IV PRN ×5 (03:53→20:44)
[2017-06-05] MEDS ORDERED: MORPHINE SULFATE 10 MG/1 ML DISP.SYRIN ONE (04:06)
[2017-06-05] MEDS: METRONIDAZOLE 500 MG/NS 100ML 500 MG in PREMIXED 1 EACH IV SCH ×3 (05:18→21:20)
--- NOTE | 2017-06-05 06:39 | NUR ---
ON PAIN MANAGEMENT FOR C/O LOW BACK PAIN. MEDICATED ORDERED. WITH RELIEF FOR FEW HOURS. URINE SAMPLE COLLECTED AND SENT TO LAB. SAFETY MEASURES RENDERED.
--- NOTE | 2017-06-05 07:20 | NUR ---
RECEIVED CLIENT IN BED SOUND ASLEEP AND COMFORTABLE IN BED. NO APPARENT SIGNS AND SYMPTOMS OF PAIN, SOB, DISTRESS AND DISCOMFORT. CLIENT SLEEPING IN A SUPINE POSITION, SLIGHTLY TURN TO THE RIGHT SIDE.
[2017-06-05 07:43] LABS: *BILIRUBIN,URIN NEGATIVE (NEGATIVE); *BLOOD, URINE 3+ (NEGATIVE); *CLARITY,URINE SLIGHTLY CLOUDY (CLEAR); *COLOR,URINE YELLOW (YELLOW); *KETONES,URINE NEGATIVE (NEGATIVE); *PROTEIN,URINE 1+ (NEGATIVE); *UROBILINOGEN,URINE 0.2 E.U./dl (NORMAL); LEUKOCYTE ESTERASE ,URINE 1+ (NEGATIVE); NITRITE, URINE NEGATIVE (NEGATIVE); UGLUCOSE NEGATIVE (NEGATIVE)
--- NOTE | 2017-06-05 08:30 | NUR ---
CLIENT IS AWAKE, ALERT, AND ORIENTED TIMES 4, LAYING SUPINE IN BED WITH THE HOB AT 20 DEGREES. CLIENT STATES BACK PAIN 01/18. COMPLIANT WITH ALL MORNING MEDICATIONS. AMBULATORY. IV INTACT WITH HYDRATION RUNNING AT 60 MLS/HR. NO SIGNS AND SYMPTOM OF DISCOMFORT, DISTRESS OR SOB.
[2017-06-05] MEDS: MYCOPHENOLATE MOFETIL 250 MG CAPSULE PO SCH ×2 (08:31→20:45)
[2017-06-05] MEDS: FAMOTIDINE 20 MG TABLET PO SCH ×2 (08:31→16:42)
[2017-06-05] MEDS: FOLIC ACID 1 MG TABLET PO SCH ×2 (08:31→16:42)
[2017-06-05] MEDS: LACTOBACILLUS RHAMNOSUS GG 1 EACH CAPSULE PO SCH ×2 (08:31→20:45)
[2017-06-05] MEDS: predniSONE 5 MG TABLET PO SCH (08:31)
[2017-06-05] MEDS: FERROUS SULFATE 325 MG TABEC PO SCH (08:31)
[2017-06-05] MEDS: LINEZOLID 600 MG TABLET PO SCH ×2 (08:43→20:46)
[2017-06-05] MEDS: MEROPENEM 0.5 G in IV NORMAL SALINE 50 ML IV SCH ×2 (08:43→20:45)
[2017-06-05] MEDS ORDERED: TACROLIMUS ANHYDROUS 0.5 MG CAPSULE PO ONE (09:00)
[2017-06-05 09:22] LABS: RBC,URINE TNTC /HPF (0-3)
[2017-06-05 09:23] LABS: WBC,URINE 20-50 /HPF (0-3)
[2017-06-05 09:24] LABS: BACTERIA,URINE FEW /HPF (NONE SEEN); SQUAMOUS EPITHELIAL CELL,UR FEW /HPF (NONE SEEN)
[2017-06-05] MEDS: IV NS 1000 ML 1,000 ML IV PRN (10:26)
[2017-06-05 10:41] LABS: CREATININE 1.5 mg/dL (0.6-1.3); MAGNESIUM 1.4 mg/dL (1.8-2.4); PHOSPHOROUS 3.3 mg/dL (2.5-4.9); POTASSIUM 4.7 mmol/L (3.5-5.1)
[2017-06-05 10:43] LABS: BASOPHILS # (AUTO) 0.1 K/uL (0.0-8.0); BASOPHILS % (AUTO) 0.8 % (0.0-2.0); EOSINOPHILS # (AUTO) 0.3 K/uL (0.0-0.7); EOSINOPHILS % (AUTO) 1.9 % (0.0-7.0); HEMATOCRIT 29.2 % (31.2-41.9); HEMOGLOBIN 8.8 g/dL (10.9-14.3); LYMPHOCYTES # (AUTO) 2.1 K/uL (20.0-40.0); LYMPHOCYTES % (AUTO) 12.9 % (20.5-51.5); MEAN CORPUSCULAR HEMOGLOBIN 26.2 uug (24.7-32.8); MEAN CORPUSCULAR HGB CONC 30 g/dL (32.3-35.6); MEAN CORPUSCULAR VOLUME 86.8 fL (75.5-95.3); MONOCYTES % (AUTO) 6.4 % (0.0-11.0); NEUTROPHILS # (AUTO) 12.6 K/uL (1.8-8.9); PLATELET COUNT (AUTO) 537 K/uL (179-408); RED BLOOD CELL COUNT(AUTO) 3.37 MIL/uL (3.63-4.92); WHITE BLOOD COUNT (AUTO) 16.1 K/uL (3.8-11.8)
[2017-06-05 11:46] VITALS: BP 115/77
[2017-06-05 15:49] VITALS: BP 117/70
--- NOTE | 2017-06-05 18:00 | NUR ---
CLIENT HAS BEEN COMPLIANT WITH MEDICATIONS THROUGHOUT THE DAY. PAIN MANAGEMENT HAS BEEN MANAGED THROUGHOUT TODAY'S SHIFT. ABLE TO VERBALIZE NEEDS. AMBULATORY. REMAINED IN BED THROUGHOUT THE SHIFT. ANTIBIOTICS GIVEN ORDERED.
[2017-06-05 20:00] VITALS: BP 115/76
[2017-06-05] MEDS: TACROLIMUS ANHYDROUS 1 MG CAPSULE PO SCH (20:45)
[2017-06-05] MEDS: MAGNESIUM OXIDE 400 MG TABLET PO SCH (21:20)
--- NOTE | 2017-06-05 21:22 | NUR ---
Patient awake in bed no SOB denies chest pain. Still c/o on & off flank pain, 8/10 level of pain. Vital signs WNL. Medicated for pain PRN. Offered night snacks, patient tolerated. Kep comfortable, call light within reach. Will continue to monitor.
[2017-06-06] MEDS: MORPHINE SULFATE 4 MG/1 ML DISP.SYRIN IV PRN ×6 (00:56→21:41)
[2017-06-06] MEDS: METRONIDAZOLE 500 MG/NS 100ML 500 MG in PREMIXED 1 EACH IV SCH (05:23)
[2017-06-06] MEDS ORDERED: MORPHINE SULFATE 10 MG/1 ML DISP.SYRIN ONE (05:32)
--- NOTE | 2017-06-06 06:00 | NUR ---
PT WAS AWAKE, ALERT ORIENTED IN BED. PT IS COUGHING. SAFETY AND COMFORT PROVIDED.
[2017-06-06] MEDS: IV NS 1000 ML 1,000 ML IV PRN ×2 (06:27→20:34)
[2017-06-06 06:38] VITALS: BP 119/76
--- NOTE | 2017-06-06 07:15 | NUR ---
CLIENT IS SLEEPING IN BED IN A SUPINE FLAT SUPINE POSITION. NO APPARENT SIGNS AND SYMPTOMS OF SOB, DISTRESS, DISCOMFORT OR PAIN.
[2017-06-06] MEDS: MEROPENEM 0.5 G in IV NORMAL SALINE 50 ML IV SCH (08:56)
[2017-06-06] MEDS: TACROLIMUS ANHYDROUS 1 MG CAPSULE PO SCH ×2 (08:57→20:25)
[2017-06-06] MEDS: FERROUS SULFATE 325 MG TABEC PO SCH (08:57)
[2017-06-06] MEDS: FOLIC ACID 1 MG TABLET PO SCH ×2 (08:57→16:38)
[2017-06-06] MEDS: FAMOTIDINE 20 MG TABLET PO SCH ×2 (08:57→16:38)
[2017-06-06] MEDS: predniSONE 5 MG TABLET PO SCH (08:57)
[2017-06-06] MEDS: LINEZOLID 600 MG TABLET PO SCH (08:57)
[2017-06-06] MEDS: MYCOPHENOLATE MOFETIL 250 MG CAPSULE PO SCH ×2 (08:57→20:25)
[2017-06-06 09:43] LABS: BASOPHILS # (AUTO) 0.2 K/uL (0.0-8.0); EOSINOPHILS # (AUTO) 0.4 K/uL (0.0-0.7); EOSINOPHILS % (AUTO) 2.6 % (0.0-7.0); HEMATOCRIT 28.7 % (31.2-41.9); HEMOGLOBIN 8.8 g/dL (10.9-14.3); LYMPHOCYTES # (AUTO) 2.1 K/uL (20.0-40.0); LYMPHOCYTES % (AUTO) 13.3 % (20.5-51.5); MEAN CORPUSCULAR HEMOGLOBIN 26.2 uug (24.7-32.8); MEAN CORPUSCULAR HGB CONC 31 g/dL (32.3-35.6); MEAN CORPUSCULAR VOLUME 85.5 fL (75.5-95.3); MONOCYTES # (AUTO) 0.9 K/uL (2.0-10.0); MONOCYTES % (AUTO) 5.4 % (0.0-11.0); NEUTROPHILS # (AUTO) 12.4 K/uL (1.8-8.9); NEUTROPHILS % (AUTO) 77.7 % (38.5-71.5); PLATELET COUNT (AUTO) 533 K/uL (179-408); RED BLOOD CELL COUNT(AUTO) 3.36 MIL/uL (3.63-4.92); WHITE BLOOD COUNT (AUTO) 15.9 K/uL (3.8-11.8)
[2017-06-06 10:11] LABS: ALANINE AMINOTRANSFERASE < 6 U/L (14-59); ALKALINE PHOSPHATASE 67 U/L (50-136); ASPARTATE AMINOTRANSFERASE 12 U/L (15-37); BILIRUBIN,TOTAL 0.2 mg/dL (0.2-1.0); CARBON DIOXIDE 20 mmol/L (21-32); CHLORIDE 113 mmol/L (98-107); CREATININE 1.2 mg/dL (0.6-1.3); GLUCOSE 96 mg/dL (74-106); MAGNESIUM 1.3 mg/dL (1.8-2.4); PHOSPHOROUS 3.1 mg/dL (2.5-4.9); POTASSIUM 4.4 mmol/L (3.5-5.1); TOTAL PROTEIN, SERUM 5.5 g/dL (6.4-8.2); UREA NITROGEN, BLOOD 15 mg/dL (7-18)
[2017-06-06] MEDS: LACTOBACILLUS RHAMNOSUS GG 1 EACH CAPSULE PO SCH ×2 (10:35→20:26)
[2017-06-06] MEDS: ACETAMINOPHEN 325 MG TABLET PO PRN ×2 (10:36→21:40)
[2017-06-06] MEDS ORDERED: MAGNESIUM SULFATE/D5W 100 ML IV SCH (11:15)
[2017-06-06 11:19] VITALS: BP 120/79
[2017-06-06] MEDS: MAGNESIUM SULFATE 1 GM in IV DEXTROSE 5% 100 ML IV SCH ×3 (12:10→19:52)
--- NOTE | 2017-06-06 13:00 | NUR ---
MAGNESIUM IV RUNNING AT 50CC/HR, CLIENT STATES THAT RUNNING THE IV AT 100 CC/HR WILL CAUSE IV SITE TO HAVE A BURNING SENSATION.
--- NOTE | 2017-06-06 15:00 | NUR ---
SECOND BAG OF MAGNESIUM IS RUNNING AT 25 CC/HR, CLIENT STATED SHE WAS FEELING A BURNING SENSATION AT 50CC/HR. PHARMACY IS AWARE AND STATES IT IS OK.
[2017-06-06] MEDS: METRONIDAZOLE 500 MG TABLET PO SCH ×2 (15:16→20:29)
[2017-06-06 16:06] VITALS: BP 104/59
--- NOTE | 2017-06-06 19:09 | NUR ---
CLIENT IN LAYING IN BED IN A SUPINE POSITION, AWAKE, ALERT AND ORIENTED TIMES 4. SECOND BAG OF MAGNESIUM STILL RUNNING AT 25 CC/ HR. ENDORSED TO BANKING MANAGER THE THIRD BAG IS STILL DUE. STATES NO PAIN, NO DISTRESS, NO DISCOMFORT.
[2017-06-06 20:00] VITALS: BP 118/82
[2017-06-06] MEDS: MAGNESIUM OXIDE 400 MG TABLET PO SCH (20:25)
[2017-06-06] MEDS: CEFEPIME HCL 1 G in IV DEXTROSE 5% 50 ML IV SCH (20:32)
[2017-06-07] MEDS: MORPHINE SULFATE 4 MG/1 ML DISP.SYRIN IV PRN ×6 (00:40→21:50)
[2017-06-07] MEDS: METRONIDAZOLE 500 MG TABLET PO SCH ×3 (05:04→22:05)
--- NOTE | 2017-06-07 06:00 | NUR ---
Patient febrile throughout the night. Tylenol p.o given for Fever, medicated for pain PRN. Sponge bath provided. Continuos cooling measures applied. Patient is now coughing on & off productively, called [facility] for weekend receptionist MD. Spoke to Nurse practitioner Maria R Parra, received orders & carried out.
[2017-06-07 06:05] VITALS: BP 123/81
[2017-06-07] MEDS ORDERED: IBUPROFEN 400 MG TABLET PO PRN (06:15)
[2017-06-07] MEDS ORDERED: ACETAMINOPHEN ES 500 MG TABLET PO PRN (06:30)
--- NOTE | 2017-06-07 07:20 | NUR ---
RECEIVED REPORT FROM CONE PICKER NURSE, PATIENT IN BED WITH MULTIPLE ICE PACKS ON HER FOR COOLING MEASURES. PATIENT DOES NOT CURRENTLY REPORT PAIN, BUT FEELS UNCOMFORTABLE.
[2017-06-07] MEDS: ACETAMINOPHEN 325 MG TABLET PO PRN ×2 (09:30→22:22)
[2017-06-07] MEDS: FAMOTIDINE 20 MG TABLET PO SCH ×2 (09:30→16:25)
[2017-06-07] MEDS: TACROLIMUS ANHYDROUS 1 MG CAPSULE PO SCH ×2 (09:30→22:04)
[2017-06-07] MEDS: FOLIC ACID 1 MG TABLET PO SCH ×2 (09:30→16:26)
[2017-06-07] MEDS: LACTOBACILLUS RHAMNOSUS GG 1 EACH CAPSULE PO SCH ×2 (09:30→22:05)
[2017-06-07] MEDS: FERROUS SULFATE 325 MG TABEC PO SCH (09:31)
[2017-06-07] MEDS: MYCOPHENOLATE MOFETIL 250 MG CAPSULE PO SCH ×2 (09:31→22:05)
[2017-06-07] MEDS: predniSONE 5 MG TABLET PO SCH (09:32)
[2017-06-07] MEDS: EPOETIN ALFA 20,000 UNIT/ML ML SQ SCH (09:33)
[2017-06-07] MEDS: CEFEPIME HCL 1 G in IV DEXTROSE 5% 50 ML IV SCH ×2 (09:35→22:04)
[2017-06-07 11:49] VITALS: BP 102/63
[2017-06-07 15:58] VITALS: BP 103/70
[2017-06-07] MEDS: IV NS 1000 ML 1,000 ML IV PRN (17:28)
--- NOTE | 2017-06-07 18:59 | NUR ---
PATIENT IN BED AWAKE, NO EVIDENCE OF DISTRESS NOTED, PATIENT WAS COOPERATIVE WITH CARE, PATIENT HAD SEVERE PAIN THROUGHOUT THE DAY EVERY FOUR HOURS ADMINISTERED MORPHINE 10MG. TYLENOL ADMINISTERED TWICE TEMPERATURE WAS INCREASING.
[2017-06-07 19:00] VITALS: BP 114/79
[2017-06-07] MEDS: MAGNESIUM OXIDE 400 MG TABLET PO SCH (22:05)
[2017-06-07] MEDS: OSELTAMIVIR PHOSPHATE 75 MG CAPSULE PO SCH (22:05)
--- NOTE | 2017-06-07 22:20 | NUR ---
Patient febrile, administered tylenol as ordered. Patient is alert, in no distress, will reassess and monitor. Addendum: 06/08/17 at 0650 by CHELSEA BALDERAS RN Add: coolilng measures done, fluid intake, pt verbalized understanding.
[2017-06-08] VITALS: BP 123/84
[2017-06-08] MEDS: MORPHINE SULFATE 4 MG/1 ML DISP.SYRIN IV PRN ×6 (01:19→22:32)
[2017-06-08 04:00] VITALS: BP 112/72
[2017-06-08] MEDS: METRONIDAZOLE 500 MG TABLET PO SCH ×3 (05:19→22:00)
--- NOTE | 2017-06-08 06:00 | NUR ---
Pt slept intermittently, in no distress. Temp 99.2F, continue cooling measures, fluid intake, pt verbalized understanding. IVF infusing, no infiltration noted. Pain management as ordered. Safety measures in place, will continue to monitor.
--- NOTE | 2017-06-08 07:05 | NUR ---
received report from delicatessen goods stock clerk nurse, patient in bed awake, no evidence of distress noted, bed in low position, side rails up x2. All needs met. patient reports some pain, but notified that pain medication is not due until 920am.
[2017-06-08] MEDS: LACTOBACILLUS RHAMNOSUS GG 1 EACH CAPSULE PO SCH ×2 (09:40→22:00)
[2017-06-08] MEDS: MYCOPHENOLATE MOFETIL 250 MG CAPSULE PO SCH ×2 (09:41→22:00)
[2017-06-08] MEDS: OSELTAMIVIR PHOSPHATE 75 MG CAPSULE PO SCH (09:41)
[2017-06-08] MEDS: FERROUS SULFATE 325 MG TABEC PO SCH (09:41)
[2017-06-08] MEDS: FAMOTIDINE 20 MG TABLET PO SCH ×2 (09:41→18:25)
[2017-06-08] MEDS: TACROLIMUS ANHYDROUS 1 MG CAPSULE PO SCH ×2 (09:41→21:59)
[2017-06-08] MEDS: predniSONE 5 MG TABLET PO SCH (09:41)
[2017-06-08] MEDS: FOLIC ACID 1 MG TABLET PO SCH ×2 (09:41→18:25)
[2017-06-08] MEDS: CEFEPIME HCL 1 G in IV DEXTROSE 5% 50 ML IV SCH (10:00)
[2017-06-08] MEDS: ACETAMINOPHEN 325 MG TABLET PO PRN (10:00)
[2017-06-08 10:31] LABS: LYMPHOCYTES # (AUTO) 0.6 K/UL (0.8-4.8); MEAN CORPUSCULAR HEMOGLOBIN 26.7 UUG (27.0-31.0)
[2017-06-08 10:35] LABS: BASOPHILS % (AUTO) 0.3 % (0.0-2.0); EOSINOPHILS # (AUTO) 0.1 K/uL (0.0-0.7); EOSINOPHILS % (AUTO) 0.5 % (0.0-7.0); HEMATOCRIT 31.6 % (37-47); HEMOGLOBIN 9.9 G/DL (12.0-16.0); LYMPHOCYTES % (AUTO) 5.7 % (20.5-51.5); MEAN CORPUSCULAR HGB CONC 31 g/dL (32.0-37.0); MEAN CORPUSCULAR VOLUME 85.4 FL (81.0-99.0); MONOCYTES # (AUTO) 0.3 K/UL (0.1-1.30); MONOCYTES % (AUTO) 3.3 % (0.0-11.0); NEUTROPHILS % (AUTO) 90.2 % (38.5-71.5)
[2017-06-08 10:37] LABS: PLATELET COUNT (AUTO) 254 K/UL (150-450)
[2017-06-08 10:45] LABS: BILIRUBIN,TOTAL 0.2 mg/dL (0.2-1.0); CREATININE 1.3 mg/dL (0.6-1.3); MAGNESIUM 1.7 mg/dL (1.8-2.4); PHOSPHOROUS 2.9 mg/dL (2.5-4.9); POTASSIUM 4.7 mmol/L (3.5-5.1); TOTAL PROTEIN, SERUM 5.7 g/dL (6.4-8.2)
[2017-06-08 11:06] VITALS: BP 115/75
[2017-06-08 11:22] LABS: BAND % (MANUAL) 2 % (0-10); LYMPHOCYTES % (MANUAL) 4 % (20-40); NEUTROPHILS % (MANUAL) 88 % (42-75)
[2017-06-08 11:23] LABS: MONOCYTES % (MANUAL) 6 % (2-10)
[2017-06-08 15:16] VITALS: BP 100/65
[2017-06-08] MEDS: IV NS 1000 ML 1,000 ML IV PRN (18:58)
--- NOTE | 2017-06-08 18:59 | NUR ---
PATIENT HAS BEEN COOPERATIVE WITH CARE, PATIENT HAD A FEVER EARLY IN THE AFTERNOON, AND WAS REDUCED WITH COOLING MEASURES AND TYLENOL. PATIENT HAS INTERMITTENT PAIN AND RELIEF WITH MORPHINE [id number].
[2017-06-08 19:00] VITALS: BP 105/67
[2017-06-08] MEDS ORDERED: AZITHROMYCIN 250 MG TABLET PO ONE (20:30)
[2017-06-08] MEDS: CEFTAZIDIME 1 G in IV DEXTROSE 5% 50 ML IV SCH (22:00)
[2017-06-08] MEDS: MAGNESIUM OXIDE 400 MG TABLET PO SCH (22:00)
[2017-06-09] MEDS: ACETAMINOPHEN 325 MG TABLET PO PRN (01:45)
[2017-06-09] MEDS: MORPHINE SULFATE 4 MG/1 ML DISP.SYRIN IV PRN ×5 (02:26→20:14)
[2017-06-09 04:00] VITALS: BP 105/71
[2017-06-09] MEDS: CEFTAZIDIME 1 G in IV DEXTROSE 5% 50 ML IV SCH ×3 (06:50→21:01)
[2017-06-09] MEDS: METRONIDAZOLE 500 MG TABLET PO SCH ×3 (06:50→21:01)
[2017-06-09] MEDS ORDERED: MORPHINE SULFATE 10 MG/1 ML DISP.SYRIN ONE (06:59)
[2017-06-09] MEDS: predniSONE 5 MG TABLET PO SCH (09:18)
[2017-06-09] MEDS: OSELTAMIVIR PHOSPHATE 75 MG CAPSULE PO SCH (09:19)
[2017-06-09] MEDS: FOLIC ACID 1 MG TABLET PO SCH ×2 (09:19→17:31)
[2017-06-09] MEDS: TACROLIMUS ANHYDROUS 1 MG CAPSULE PO SCH ×2 (09:19→20:07)
[2017-06-09] MEDS: MYCOPHENOLATE MOFETIL 250 MG CAPSULE PO SCH ×2 (09:19→20:07)
[2017-06-09] MEDS: FERROUS SULFATE 325 MG TABEC PO SCH (09:19)
[2017-06-09] MEDS: FAMOTIDINE 20 MG TABLET PO SCH ×2 (09:20→17:31)
[2017-06-09] MEDS: EPOETIN ALFA 20,000 UNIT/ML ML SQ SCH (09:20)
[2017-06-09] MEDS: LACTOBACILLUS RHAMNOSUS GG 1 EACH CAPSULE PO SCH ×2 (09:20→20:07)
[2017-06-09 11:05] VITALS: BP 107/64
--- NOTE | 2017-06-09 12:00 | NUR ---
received report from MANI Sim. patient stable upon initial assessment, awake in bed. no s/s acute distress. no c/o pain at this time. previous nurse administered IV PRN pain medication and it has been effective. patient is resting comfortably with call light within reach. will continue to monitor.
[2017-06-09 12:55] LABS: BASOPHILS # (AUTO) 0.1 K/uL (0.0-8.0); BASOPHILS % (AUTO) 0.6 % (0.0-2.0); EOSINOPHILS # (AUTO) 0.2 K/uL (0.0-0.7); EOSINOPHILS % (AUTO) 1.3 % (0.0-7.0); LYMPHOCYTES # (AUTO) 2.2 K/uL (20.0-40.0); LYMPHOCYTES % (AUTO) 17.7 % (20.5-51.5); MEAN CORPUSCULAR HEMOGLOBIN 25.3 uug (24.7-32.8); MEAN CORPUSCULAR HGB CONC 29 g/dL (32.3-35.6); MEAN CORPUSCULAR VOLUME 87.9 fL (75.5-95.3); MONOCYTES % (AUTO) 8.4 % (0.0-11.0); RED BLOOD CELL COUNT(AUTO) 3.84 MIL/uL (3.63-4.92); WHITE BLOOD COUNT (AUTO) 12.5 K/uL (3.8-11.8)
[2017-06-09 13:18] LABS: CREATININE 1.2 mg/dL (0.6-1.3); MAGNESIUM 1.6 mg/dL (1.8-2.4); PHOSPHOROUS 3.1 mg/dL (2.5-4.9); POTASSIUM 4.7 mmol/L (3.5-5.1)
[2017-06-09 13:19] LABS: HEMATOCRIT 33.8 % (31.2-41.9); HEMOGLOBIN 9.7 g/dL (10.9-14.3); PLATELET COUNT (AUTO) 392 K/uL (179-408)
--- NOTE | 2017-06-09 14:00 | NUR ---
MD Prieto making rounds was informed that patient has been requesting cough drops. patient does appear to have intermittent cough. MD ordered robitussin with codeine 10ml to be given every 6 hours as needed. when patient was informed of this new order she refused the robitussin and stated she only wanted cough drops to soothe her cough and not another medication. patient was informed that the order will not be placed and she stated she will like to speak with MD when he makes rounds. patient stable at this time. will continue to monitor.
[2017-06-09 15:03] VITALS: BP 133/57
--- NOTE | 2017-06-09 17:57 | NUR ---
patient stable, awake resting comfortably in bed. no s/s acute distress. no c/o pain at this time. will continue to monitor.
--- NOTE | 2017-06-09 19:30 | NUR ---
Received patient laying comfortably in bed. No acute distress noted. A7O x 4. She is able to ambulate with minimal assistance. IVF infusing. Skin intact. Safety initiated. Call light within reach. Room is kept clutter free. Bed is on low and lock position. Will continue to monitor.
[2017-06-09 20:00] VITALS: BP 112/72
[2017-06-09] MEDS: MAGNESIUM OXIDE 400 MG TABLET PO SCH (20:07)
[2017-06-09] MEDS: AZITHROMYCIN 250 MG TABLET PO SCH (20:07)
[2017-06-09] MEDS ORDERED: GUAIFENESIN/DEXTROMETHORPHAN 5 ML UDC PO PRN (20:30)
[2017-06-10] MEDS: MORPHINE SULFATE 4 MG/1 ML DISP.SYRIN IV PRN ×6 (00:32→22:50)
[2017-06-10] MEDS ORDERED: MORPHINE SULFATE 10 MG/1 ML DISP.SYRIN ONE ×2 (00:45→04:43)
[2017-06-10 04:00] VITALS: BP 118/75
--- NOTE | 2017-06-10 05:00 | NUR ---
Noticed that her temperature was at 99.5. Discussed with patient about cooling measures and medication to bring down the slight increase in temperature. Refused all. Will continue to monitor.
[2017-06-10] MEDS: METRONIDAZOLE 500 MG TABLET PO SCH ×3 (05:12→21:56)
[2017-06-10] MEDS: CEFTAZIDIME 1 G in IV DEXTROSE 5% 50 ML IV SCH ×3 (05:12→21:56)
--- NOTE | 2017-06-10 05:37 | NUR ---
Patient slept intermittently t/o shift. No acute distress noted. Patient c/o pain 8/10 in the back/abdomen. Meds given stated relief. Patient urinating well. BRP. IVF Infusing. Safety and comfort measures maintained t/o shift. All meds given as ordered. All needs met.
[2017-06-10] MEDS: predniSONE 5 MG TABLET PO SCH (08:54)
[2017-06-10] MEDS: MYCOPHENOLATE MOFETIL 250 MG CAPSULE PO SCH ×2 (08:55→21:55)
[2017-06-10] MEDS: LACTOBACILLUS RHAMNOSUS GG 1 EACH CAPSULE PO SCH ×2 (08:56→21:55)
[2017-06-10] MEDS: FAMOTIDINE 20 MG TABLET PO SCH ×2 (08:56→17:45)
[2017-06-10] MEDS: TACROLIMUS ANHYDROUS 1 MG CAPSULE PO SCH ×2 (08:56→21:56)
[2017-06-10] MEDS: FERROUS SULFATE 325 MG TABEC PO SCH (08:56)
[2017-06-10] MEDS: FOLIC ACID 1 MG TABLET PO SCH ×2 (08:56→17:45)
[2017-06-10] MEDS: OSELTAMIVIR PHOSPHATE 75 MG CAPSULE PO SCH (08:57)
[2017-06-10 11:42] VITALS: BP 116/74
[2017-06-10 15:48] VITALS: BP 106/70
[2017-06-10] MEDS: IV NS 1000 ML 1,000 ML IV PRN (17:46)
--- NOTE | 2017-06-10 18:45 | NUR ---
Patient in bed, Awake, alert and oriented X4 with no Resp. distress noted. PRN morphine given Q4 as ordered. Call light in with reach.
--- NOTE | 2017-06-10 19:30 | NUR ---
Received patient laying comfortably in bed. A&O x 4. Family is at bedside. No acute distress noted. IVF infusing. Room is kept clutter free. Bed is in low and locked position. Safety initiated. Call light within reach.Will continue to monitor.
[2017-06-10] MEDS: AZITHROMYCIN 250 MG TABLET PO SCH (21:56)
[2017-06-10] MEDS: MAGNESIUM OXIDE 400 MG TABLET PO SCH (21:56)
[2017-06-11] MEDS: MORPHINE SULFATE 4 MG/1 ML DISP.SYRIN IV PRN ×5 (02:50→20:27)
[2017-06-11 03:50] VITALS: BP 115/71
[2017-06-11] MEDS: CEFTAZIDIME 1 G in IV DEXTROSE 5% 50 ML IV SCH ×3 (05:25→21:56)
[2017-06-11] MEDS: METRONIDAZOLE 500 MG TABLET PO SCH ×3 (05:25→21:56)
--- NOTE | 2017-06-11 05:39 | NUR ---
Patient slept intermittently t/o shift. No acute distress noted. Patient c/o diarrhea. Patient c/o pain t/o shift. Meds given, stated relief. Urinating ok. Vital signs stable. No fever. Safety and comfort measures maintained t/o shift. All needs met.
--- NOTE | 2017-06-11 08:00 | NUR ---
Discussed plan of care with patient re: proper pain management. PT agreeable with plan of care. Call light is within reach.
[2017-06-11] MEDS: FERROUS SULFATE 325 MG TABEC PO SCH (10:23)
[2017-06-11] MEDS: TACROLIMUS ANHYDROUS 1 MG CAPSULE PO SCH ×2 (10:23→20:40)
[2017-06-11] MEDS: MYCOPHENOLATE MOFETIL 250 MG CAPSULE PO SCH ×2 (10:23→20:40)
[2017-06-11] MEDS: FOLIC ACID 1 MG TABLET PO SCH ×2 (10:23→16:46)
[2017-06-11] MEDS: predniSONE 5 MG TABLET PO SCH (10:26)
[2017-06-11] MEDS: LACTOBACILLUS RHAMNOSUS GG 1 EACH CAPSULE PO SCH ×2 (10:26→20:41)
[2017-06-11 12:00] VITALS: BP 109/71
[2017-06-11] MEDS: FAMOTIDINE 20 MG TABLET PO SCH ×2 (14:22→16:46)
[2017-06-11] MEDS: OSELTAMIVIR PHOSPHATE 75 MG CAPSULE PO SCH (14:23)
[2017-06-11 16:17] VITALS: BP 109/69
--- NOTE | 2017-06-11 18:43 | NUR ---
Plan of care effective. Call light is within reach. Pt's pain managed with morphine.
[2017-06-11 19:30] VITALS: BP 116/69
--- NOTE | 2017-06-11 20:00 | NUR ---
PT AWAKE, ALERT AND ORIENTED. PT IV SITE INTACT. VITAL SIGNS WNL. SAFETY AND COMFORT PROVIDED. CALL LIGHT WITH IN REACH. WILL CONTINUE TO MONITOR.
[2017-06-11] MEDS: AZITHROMYCIN 250 MG TABLET PO SCH (20:25)
[2017-06-11] MEDS: MAGNESIUM OXIDE 400 MG TABLET PO SCH (20:41)
[2017-06-11] MEDS: IV NS 1000 ML 1,000 ML IV PRN (22:51)
[2017-06-12] MEDS: MORPHINE SULFATE 4 MG/1 ML DISP.SYRIN IV PRN ×6 (00:36→21:34)
[2017-06-12 04:00] VITALS: BP 109/77
--- NOTE | 2017-06-12 05:00 | NUR ---
PT ASLEEP COMFORTABLY IN BED. PT VITAL SIGNS WNL.NO SIGNS OF ACUTE DISTRESS. PT IS COUGHING. CALL LIGHT WITHIN REACH. SAFETY AND COMFORT PROVIDED.
[2017-06-12] MEDS: METRONIDAZOLE 500 MG TABLET PO SCH ×3 (05:35→21:32)
[2017-06-12] MEDS: CEFTAZIDIME 1 G in IV DEXTROSE 5% 50 ML IV SCH ×3 (05:36→21:32)
[2017-06-12] MEDS: FERROUS SULFATE 325 MG TABEC PO SCH (09:51)
[2017-06-12] MEDS: predniSONE 5 MG TABLET PO SCH (09:51)
[2017-06-12] MEDS: LACTOBACILLUS RHAMNOSUS GG 1 EACH CAPSULE PO SCH ×2 (09:51→21:33)
[2017-06-12] MEDS: FOLIC ACID 1 MG TABLET PO SCH ×2 (09:51→17:38)
[2017-06-12] MEDS: TACROLIMUS ANHYDROUS 1 MG CAPSULE PO SCH ×2 (09:52→21:32)
[2017-06-12 12:07] VITALS: BP 109/73
[2017-06-12] MEDS: FAMOTIDINE 20 MG TABLET PO SCH ×2 (12:28→17:38)
[2017-06-12] MEDS: ACETAMINOPHEN 325 MG TABLET PO PRN (12:28)
[2017-06-12] MEDS: MYCOPHENOLATE MOFETIL 250 MG CAPSULE PO SCH ×2 (12:29→21:32)
[2017-06-12 13:10] LABS: BASOPHILS % (AUTO) 0.1 % (0.0-2.0); EOSINOPHILS # (AUTO) 0.2 K/uL (0.0-0.7); EOSINOPHILS % (AUTO) 1.2 % (0.0-7.0); HEMATOCRIT 30.7 % (37-47); HEMOGLOBIN 9.4 G/DL (12.0-16.0); LYMPHOCYTES % (AUTO) 7.6 % (20.5-51.5); MEAN CORPUSCULAR HEMOGLOBIN 26.5 UUG (27.0-31.0); MEAN CORPUSCULAR HGB CONC 31 g/dL (32.0-37.0); MEAN CORPUSCULAR VOLUME 86.4 FL (81.0-99.0); MONOCYTES # (AUTO) 0.7 K/UL (0.1-1.30); MONOCYTES % (AUTO) 5.3 % (0.0-11.0); NEUTROPHILS # (AUTO) 11.8 K/UL (1.8-8.9); NEUTROPHILS % (AUTO) 85.8 % (38.5-71.5); PLATELET COUNT (AUTO) 499 K/UL (150-450); RED BLOOD CELL COUNT(AUTO) 3.55 MIL/UL (4.2-5.4); WHITE BLOOD COUNT (AUTO) 13.7 K/UL (4.0-11.2)
[2017-06-12 13:29] LABS: BILIRUBIN,TOTAL 0.2 mg/dL (0.2-1.0); CREATININE 1.2 mg/dL (0.6-1.3); MAGNESIUM 1.5 mg/dL (1.8-2.4); PHOSPHOROUS 2.5 mg/dL (2.5-4.9); POTASSIUM 4.9 mmol/L (3.5-5.1); TOTAL PROTEIN, SERUM 5.3 g/dL (6.4-8.2)
[2017-06-12 16:00] VITALS: BP 103/70
[2017-06-12] MEDS: IV NS 1000 ML 1,000 ML IV PRN (17:39)
--- NOTE | 2017-06-12 19:30 | NUR ---
Received patient laying in bed. No acute distress noted. A&O x 4. IVF infusing. Safety initiated. Bed is in low and locked position. Room is left clutter free. Call light within reach. Will continue to monitor. Pending discharge. Waiting on pharmacy and home health to bring meds to her home.
[2017-06-12] MEDS: AZITHROMYCIN 250 MG TABLET PO SCH (21:33)
[2017-06-12] MEDS: MAGNESIUM OXIDE 400 MG TABLET PO SCH (21:58)
[2017-06-13] MEDS: MORPHINE SULFATE 4 MG/1 ML DISP.SYRIN IV PRN ×6 (02:18→22:34)
[2017-06-13 04:00] VITALS: BP 112/70
--- NOTE | 2017-06-13 05:21 | NUR ---
No changes t/o shift. No acute distress noted. Vital signs stable. Pain meds given around the clock. Was not able to be DC'd because pharmacy did not deliver the medications. DC'd protocol started. All meds given as ordered. All needs met.
[2017-06-13] MEDS: METRONIDAZOLE 500 MG TABLET PO SCH ×3 (06:04→22:32)
--- NOTE | 2017-06-13 08:00 | NUR ---
Pt is in no acute distress. Discussed plan of care with pt re: proper pain management and fall precaution. Call light is within reach.
[2017-06-13] MEDS: FERROUS SULFATE 325 MG TABEC PO SCH (09:46)
[2017-06-13] MEDS: FAMOTIDINE 20 MG TABLET PO SCH ×2 (09:46→16:46)
[2017-06-13] MEDS: LACTOBACILLUS RHAMNOSUS GG 1 EACH CAPSULE PO SCH ×2 (09:46→20:55)
[2017-06-13] MEDS: MYCOPHENOLATE MOFETIL 250 MG CAPSULE PO SCH ×2 (09:47→20:54)
[2017-06-13] MEDS: TACROLIMUS ANHYDROUS 1 MG CAPSULE PO SCH ×2 (09:47→20:53)
[2017-06-13] MEDS: FOLIC ACID 1 MG TABLET PO SCH ×2 (09:47→16:46)
[2017-06-13] MEDS: predniSONE 5 MG TABLET PO SCH (09:48)
[2017-06-13] MEDS: CEFTAZIDIME 1 G in IV DEXTROSE 5% 50 ML IV SCH ×3 (09:50→22:32)
[2017-06-13 11:06] VITALS: BP 110/72
[2017-06-13 15:34] VITALS: BP 106/71
[2017-06-13] MEDS: IV NS 1000 ML 1,000 ML IV PRN (17:42)
--- NOTE | 2017-06-13 18:30 | NUR ---
Plan of care effective no fall noted and pain managed with morphine.
--- NOTE | 2017-06-13 19:30 | NUR ---
PT IN ROOM ALERT AWAKE IN NO ACUTE DISTRESS. PT MADE AWARE OF PLAN OF CARE LEADING TO DISCHARGE. NO REACTION TO CURRENT ABX THERAPY. ABLE TO FOLLOW SIMPLE COMMANDS. STATES GENERALIZED PAIN BUT MORPHINE IS EFFECTIVE AT THIS TIME. CONTINUING IV FLUIDS NS AT 60 ML/HR. CONTINUE TO MONITOR. CALL LIGHT PLACED WITHIN REACH.
[2017-06-13] MEDS: AZITHROMYCIN 250 MG TABLET PO SCH (20:54)
[2017-06-13] MEDS: MAGNESIUM OXIDE 400 MG TABLET PO SCH (20:54)
[2017-06-13 22:40] VITALS: BP 106/68
--- NOTE | 2017-06-14 01:51 | NUR ---
PT DISCHARGED. ALL BELONGINGS TAKEN. PT STATES SHE WANTS TO LEAVE HEP LOCK ON TO RIGHT FOREARM. STATED HER HOME MEDICATIONS ARRIVED AND HOME HEALTH TO FOLLOW UP.
== END 2017-06-14 02:00 | disposition home health service (06) | DRG 720 ==
LOC: ER 22:53 → MED 05-26 01:30
PROVIDERS: ADMIT Nurse Practitioner Acute Care; ATTEND Internal Medicine
PROC: 30233N1 Transfusion of Nonautologous Red Blood Cells into Peripheral Vein, Percutaneous Approach (ICD-10-PCS; principal; 2017-05-29)
DX: A41.52 Sepsis due to Pseudomonas (principal); E43 Unspecified severe protein-calorie malnutrition; E87.2 Acidosis; T86.12 Kidney transplant failure; D68.59 Other primary thrombophilia; E83.42 Hypomagnesemia; N39.0 Urinary tract infection, site not specified; Z68.1 Body mass index [BMI] 19.9 or less, adult; F11.23 Opioid dependence with withdrawal; Z87.440 Personal history of urinary (tract) infections; Z86.718 Personal history of other venous thrombosis and embolism; Z79.899 Other long term (current) drug therapy; G89.29 Other chronic pain; Z79.52 Long term (current) use of systemic steroids; M25.451 Effusion, right hip; Z74.09 Other reduced mobility; D64.9 Anemia, unspecified; E87.5 Hyperkalemia; Z83.3 Family history of diabetes mellitus; Z86.19 Personal history of other infectious and parasitic diseases; J06.9 Acute upper respiratory infection, unspecified
CPT/HCPCS: 36415; 70030-TC; 71010; 83605; 83735; 84100; 84703; 85025; 85730; 86850; 86900; 86901; 86920; 87040; 87077; 87086; 87400; 93005; A4663; J0692; J0713; J0885; J1170; J2185; J2270; J2405; J3370; J3475; J3490; J7030; J7040; J7050; J7060; J7507; J7512; J7517; P9016-BL; P9021; Q0144